=== PATIENT | male | born 1950 | race Caucasian/White ===

== ENCOUNTER 2018-08-01 08:37 | Outpatient (CLI) | payer MEDICARE, SELFPAY ==
--- NOTE | 2018-08-01 10:44 | DI.US_ITS ---
SYMPTOMS/DIAGNOSIS: RT CALF PAIN, M79.661, ? DVT RIGHT LOWER EXTREMITY ULTRASOUND: The deep veins of the right lower extremity show normal compression, augmentation and color flow. There is no evidence of a deep venous thrombus. No focal fluid collection is seen. The visualized portions of the greater saphenous vein are patent. IMPRESSION: No evidence of a right lower extremity deep venous thrombus.
== END 2018-08-01 08:57 ==
PROVIDERS: PCP Nurse Practitioner Family; Visit Provider Nurse Practitioner Family
DX: M79.661 Pain in right lower leg (principal)
CPT/HCPCS: 93971

== ENCOUNTER 2018-10-22 11:16 | Outpatient (CLI) | payer MEDICARE, SELFPAY ==
[2018-10-22 12:26] LABS: CREATININE 3.39 mg/dL (0.70-1.30); Calcium 8.4 mg/dL (8.5-10.1); Chloride 92 mmol/L (98-107); Estimated GFR 18.16 (mL/min/1.73m2); Glucose 188 mg/dL (70-100); Potassium 3.7 mmol/L (3.5-5.1); Sodium 130 mmol/L (136-145)
[2018-10-22 13:34] LABS: BUN 80 mg/dL (7-18)
== END 2018-10-22 11:36 ==
PROVIDERS: PCP Nurse Practitioner Family; Visit Provider Student in an Organized Health Care Education/Training Program
DX: R79.89 Other specified abnormal findings of blood chemistry (principal)
CPT/HCPCS: 36415; 80048

== ENCOUNTER 2018-10-22 12:47 | Inpatient (IN) | payer MEDICARE, SELFPAY ==
[2018-10-22 12:54] VITALS: BP 94/52; PULSE 95; RESP 20; TEMP 36.6; O2SAT 97
--- NOTE | 2018-10-22 13:04 | DI.CT_ITS ---
SYMPTOMS/DIAGNOSIS: LEFT LOWER QUADRANT ABDOMINAL PAIN WITH DIARRHEA X 1 WEEK, H/O DIVERTICULITIS, RESECTION IN 2011 CT OF THE ABDOMEN AND PELVIS: Comparison is made with May,. A noncontrast exam was performed. There is wall thickening and mild stranding seen around the cecum and ascending colon, as well as mild wall thickening of the transverse colon. There is also wall thickening and mild stranding in the surrounding fat involving the distal descending and rectosigmoid colon. There are scattered diverticula, but no focal evidence of diverticulitis. There are two areas of anastomosis in the sigmoid region. There is no evidence of obstruction. There is very little fecal material. There is no small bowel dilatation. There is no free air or free fluid. The lung bases are clear. The patient is status post cholecystectomy. There is mild liver enlargement, as well as fatty infiltration. The spleen is normal in size. The pancreas, adrenals and kidneys are unremarkable. The prostate is mildly enlarged. There is mild bladder wall thickening. The appendix appears normal. There are fatty-containing inguinal hernias, right greater than left. Degenerative changes are seen in the spine, greatest at L5-S1. IMPRESSION: Mild diffuse wall thickening and stranding surrounding the fat indicate colitis. There are diverticula but no evidence of focal diverticulitis.
--- NOTE | 2018-10-22 13:13 | ED.GENADUL_ITS ---
Discharge Plan Disposition Patient Disposition: [facility] INPATIENT Condition: Stable Discharge Details Chief Complaint: Abd Prob Clinical Impression: Colitis, Acute kidney injury, Acute dehydration Primary Care Provider: Mikki Mercado ED Provider: Dontrell Kiser Home Meds and New Rx's Prescriptions: No Action aspirin 325 MG tablet 1 tab PO PRN PRNRF: 0 oxycodone 5 MG tablet 5 - 10 mg PO Q4H PRN PRNQty: 20 RF: 0 Medical Decision Making This is a very pleasant 60-year-old male who was sent by his PCP for an elevated creatinine. He has had diarrhea for the last week, with notable amounts of every 20 minutes. He denies any black or tarry stools. He does have very mild left lower quadrant abdominal pain. When he initially went to see his primary care provider yesterday his creatinine was notably elevated. He was stopped on his lisinopril and metformin, and he was rechecked today and his creatinine was still high at 3.6. He has received 1 dose of Augmentin as prescribed by his PCP out of concern for diverticulitis. Physical exam demonstrates mild dehydration, blood pressure is slightly on the lower side, no evidence of severe tachycardia. The patient does look stable though. Abdomen demonstrates mild tenderness. We will get a CT scan to make sure there is no evidence of significant abscess, or other renal pathology causing his elevated creatinine, however I feel the most likely cause of his symptoms this is notable diarrhea and a prerenal component. We will rehydrate, secondary to the patient is notably elevated creatinine I do feel that he would benefit from inpatient admission 3:16 PM The patient's laboratory workup reflects the work done outpatient, renal function is still a elevated, I feel that is most likely secondary to notable dehydration during his diarrhea episodes. CT scan results have returned and per Dr. Mathew the only acute processes mild colitis and inflammation throughout the descending and sigmoid colon, with no evidence of active diverticulitis. I have started Cipro and Flagyl. The remainder of the patient's laboratory workup is otherwise relatively benign aside from mild electrolyte abnormalities. I discussed the case with Dr. Churchill, she agrees with the assessment and plan. I have extensively reviewed the treatment plan with the patient. I have addressed all patient concerns at this time. I have also discussed the plan with the admitting physician and they agree with the current assessment and plan and have agreed to assume responsibility for the patient. All parties demonstrate verbal understanding and agreement with our assessment and plan at this time. HPI General Date/Time Provider Initiated Documentation: 10/22/18 12:51 . HPI Narrative: This is a pleasant 60-year-old male with a past medical history of hypertension, diabetes, who presents today for evaluation of an elevated creatinine. Patient states that for the last week he has been having diarrhea, for the first 4 days he had a bowel movement every 20 minutes, it was green in color. It is continued for the last week but slowly started to improve the last day. He was started on Augmentin by his PCP just yesterday and has had one dose. He states that today's stool is slightly more formed, it is dark brown, but not black. When he did went into see his family doctor they did draw labs, he was complaining of some left lower quadrant tenderness. His creatinine on exam was 3.6, which is notably elevated for him. His lisinopril and metformin were held, and she was rechecked today and his labs were continued to be elevated. He was sent into the ER for further evaluation. Aside for the mild left lower quadrant pain he denies any other pain, tenderness, vomiting, chest pain, shortness of breath, fever or chills. He denies any recent foreign t ravel, antibiotic use aside for the Augmentin, or other sick contacts with similar symptoms. He denies any other complaints or modifying factors. He denies any recent abdominal surgeries. Related Data Home Medications Medication Instructions Recorded Confirmed aspirin 1 tab PO PRN PRN 06/02/14 06/03/14 oxycodone 5 - 10 mg PO Q4H PRN PRN #20 tab 06/04/14 Previous Rx's Medication Instructions Recorded oxycodone 5 - 10 mg PO Q4H PRN PRN #20 tab 06/04/14 Allergies Allergy/AdvReac Type Severity Reaction Status Date / Time No Known Allergies Allergy Unverified 10/22/18 12:58 General Stated Complaint: Abd Prob MITESH: 3 Review of Systems Review of Systems All systems reviewed & are unremarkable except as noted in HPI and below PFSH Surgical History Cholecystectomy (06/03/14) Social History Smoking/Tobacco Use Status: Current every day Alcohol Intake: current Drug use: Never Substance use type: does not use Do you feel safe at home: Yes Do you feel safe in your relationship?: Yes Exam Narrative Exam Narrative: 1.Const: Well-nourished, Well-developed, appearing stated age 2.Eyes: PERRL, no conjunctival injection, and symmetrical lids. 3.ENT: Atraumatic external nose and ears. Slightly dry MM. Neck: Symmetric, trachea midline, No thyromegaly. 4.CVS: +S1/S2, No murmurs or gallops. Peripheral pulses 2+ and equal in all extremities. Brisk capillary refill in all extremities. 5.RESP: Unlabored respiratory effort. Clear to auscultation bilaterally. No wheezes rales or rhonchi 6.GI: Soft,Nondistended, No hepatosplenomegaly. No guarding or rebound. Patient does demonstrate mild left lower quadrant abdominal tenderness on palpation. No guarding or rebound. No evidence of an acute surgical abdomen. 7.MSK: Normocephalic/Atraumatic, Extremities w/o deformity or ttp No cyanosis or clubbing, Normal movement of all extremities 8.Skin: Warm, Dry. No rashes or lesions. 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 Sensation grossly intact, no focal neurologic deficits. 10.Psych: (AAO) x3. Appropriate mood and affect Course Vital Signs Temperature 36.6 C 10/22/18 12:54 Pulse 95 H 10/22/18 12:54 Respiratory Rate 20 10/22/18 12:54 Blood Pressure 94/52 L 10/22/18 12:54 Pulse Oximetry 97 10/22/18 12:54 Temperature 36.6 C 10/22/18 12:54 Temperature Source Temporal Artery Scan 10/22/18 12:54 Pulse 95 H 10/22/18 12:54 Respiratory Rate 20 10/22/18 12:54 Respiratory Effort Non-Labored 10/22/18 12:54 Blood Pressure 94/52 L 10/22/18 12:54 Pulse Oximetry 97 10/22/18 12:54 Oxygen Delivery Method Room Air 10/22/18 12:54 Oxygen Flow Rate 0 10/22/18 12:54
[2018-10-22 13:38] LABS: Bilirubin Negative (Negative); Blood Negative (Negative); Clarity Clear; Glucose Negative (Negative); Ketones Negative (Negative); Leukocyte Esterase Negative (Negative); Nitrite Negative (Negative); Specific Gravity 1.025 (1.005-1.025); Urobilinogen 0.2 EU/dL (Up TO 0.2); pH 5.5 (5-8)
[2018-10-22 13:48] LABS: Epithelial Cells Few HPF (Negative); RBC 0-2 (0-2); WBC 0-2 HPF (0-5)
[2018-10-22 13:49] LABS: Bacteria Moderate HPF (Negative); C & S Indicated? Yes; Casts 3-5 Hyaline LPF (Negative); Crystals Negative HPF (Negative); Mucus Moderate (Negative)
[2018-10-22] MEDS: Normal Saline 1,000 ML 1000 ML IV ×2 (13:55→16:09)
[2018-10-22 14:14] LABS: HCT 43.3 % (40.0-50.0); HGB 15.4 g/dL (13.5-17.5); Mean Corp. HGB Concentration 35.6 g/dL (32.0-36.0); Mean Corpuscular Hemoglobin 29.3 pg (27.0-33.0); Mean Corpuscular Volume 82.5 fL (80-95); Mean Platelet Volume 10.5 fL (8.0-11.0); Platelet Count 276 x1000/uL (130-400); RBC 5.25 m/cumm (4.50-6.00); RBC Distribution Width 13.8 % (11.8-14.1); White Blood Cell Count 10.27 k/cumm (4.4-10.8)
[2018-10-22 14:19] LABS: ALT 53 U/L (12-78); AST 31 U/L (15-37); Albumin 2.9 g/dL (3.4-5.0); Alkaline Phosphatase 112 U/L (46-116); BUN 79 mg/dL (7-18); Bilirubin, Total 0.4 mg/dL (0.2-1.0); CREATININE 3.38 mg/dL (0.70-1.30); Calcium 8.2 mg/dL (8.5-10.1); Chloride 90 mmol/L (98-107); Estimated GFR 18.22 (mL/min/1.73m2); Glucose 163 mg/dL (70-100); Potassium 3.3 mmol/L (3.5-5.1); Sodium 129 mmol/L (136-145)
[2018-10-22 14:27] LABS: Absolute Eosinophil Count 0.41 k/cumm (0.0-0.7); Absolute Lymphocyte Count 1.54 k/cumm (1.2-3.4); Absolute Monocyte Count 1.13 k/cumm (0.11-0.7); Absolute Neutrophil Count 7.19 k/cumm (1.2-6.7); Atypical Lymphocytes % 3; Diff Comment Manual Differential; RBC Morphology Normal
[2018-10-22 14:40] LABS: Magnesium 2.4 mg/dL (1.8-2.4)
[2018-10-22] MEDS: CIPROFLOXACIN 400 MG/200 ML BAG 200 MG IVPB (15:20)
[2018-10-22] MEDS: POTASSIUM CHLORIDE 20 MEQ/100 ML BAG 50 MEQ IVPB (15:20)
[2018-10-22 15:45] VITALS: BP 149/119; PULSE 84; RESP 16; TEMP 36.5; O2SAT 95
[2018-10-22 16:28] VITALS: BP 103/65; PULSE 88; RESP 18; TEMP 36.5; O2SAT 97
[2018-10-22] MEDS: metroNIDAZOLE 500 MG/100 ML BAG 100 MG IVPB ×2 (17:20→22:36)
--- NOTE | 2018-10-22 17:59 | W.PM.HP.N ---
Date of service: 10/22/18 Time of Service: 17:59 Assessment and Plan (1) LIZ (acute kidney injury): Current visit: Yes Status: Acute Likely due to dehydration - so will treat with IVF, but will also ensure the patient does not have urinary retention with bladder scans. Will monitor I/O's and daily weights. Hold nephrotoxins (metformin, lisinopril). Hold statin until results of CPK are known. (2) Colitis: Current visit: Yes Status: Acute Agree that this is likely infectious. Await stool studies. Treat empirically with cipro/flagyl and probiotics. (3) Hyperlipidemia: Current visit: Yes Status: Acute As above - hold statin until CPK results are known. (4) Non-insulin dependent type 2 diabetes mellitus: Current visit: Yes Status: Acute Cover with SSI. Hold metformin. (5) Tobacco abuse: Current visit: Yes Status: Chronic Advised to quit. Provide nicotine patches (6) Hypokalemia: Current visit: Yes Status: Acute Replete, monitor (7) Hyponatremia: Current visit: Yes Status: Acute Hydrate with NS and monitor (8) Discharge planning issues: Current visit: Yes Status: Acute Full code. (9) DVT prophylaxis: Current visit: Yes Status: Acute Heparin SC/TEDs/SCD's History of Present Illness Chief Complaint: Sent in by doctor Narrative: Mr Juarez is a 68 year old male with PMHx of diverticulosis/diverticulitis, s/p partial colectomy as well as NIDDM2, hyperlipidemia and tobacco abuse, who states for 9 days he has been having LLQ pain and watery diarrhea. He thought he had food poisoning - and he still thinks he may have because he recently ingested avocados, which are now being recalled - so he was delaying seeing his doctor, but did finally go see someone in his PCP's office, whose name he cannot recall, who treated him for diverticulitis with augmentin, but also ordered blood work, which revealed a creatinine of 3.69. Per patient, he received the phone call at home last night at 10 pm, telling him to stop taking metformin and lisinopril. He repeated his blood work this morning, and it still showed a Cr of 3.39, so he was told by his doctor to come in. The diarrhea the patient describes was bright (but dark) green and watery. He states he had bowel movements every 30 minutes. The LLQ pain was severe. He states there was mild nausea/vomiting. The stools finally started to slow down yesterday, when he only had one stool. Review of Systems Review of Systems 12 systems reviewed. Pertinent positives and negatives are as per HPI. Additionally, reports sore throat PFSH Medical History Diverticulosis (Chronic) Hyperlipidemia (Chronic) Non-insulin dependent type 2 diabetes mellitus (Chronic) Surgical History S/P foot surgery, right (Resolved) S/P partial colectomy (Resolved) Cholecystectomy (06/03/14) Family History Maternal Grandfather Heart disease Father Esophageal cancer Social History Smoking/Tobacco Use Status: Current every day Alcohol Intake: current Drug use: Never Substance use type: does not use Do you feel safe at home: Yes Do you feel safe in your relationship?: Yes Meds Home Medications Medication Instructions Recorded Confirmed Type aspirin 1 tab PO PRN PRN 06/02/14 10/22/18 History amoxicillin-pot clavulanate 1 tab PO TID 10/22/18 10/22/18 History [Augmentin] lisinopril 5 mg PO DAILY 10/22/18 10/22/18 History metformin 500 mg PO BID 10/22/18 10/22/18 History Allergies Allergy/AdvReac Type Severity Reaction Status Date / Time No Known Allergies Allergy Unverified 10/22/18 12:58 Exam Narrative Exam Narrative: General: Very pleasant, talkative middle-aged male, mildly anxious, no acute distress, sitting at the edge of the bed Neurological: A&Ox3, No focal deficits Psychiatric: Appropriate speech pattern and content; mildly anxious Skin: Hyperpigmentation of RLE - ?chronic venous stasis HEENT: Atraumatic, normocephalic, EOMI, dry MM, no submandibular or cervical lymphadenopathy, no goiter or JVD Cardiovascular: RRR, no m/r/g Lungs: quite rhonchi B Gastrointestinal: abdomen is soft, nontender, nondistended Extremities: 2+ pedal pulses B, no edema/c/c; RLE with ?venous stasis dermatitis Results Imaging Additional studies: CT abdomen/pelvis: Mild diffuse wall thickening and stranding surrounding the fat indicate colitis. There are diverticula but no evidence of focal diverticulitis. Labs : 10/22/18 13:55 10/22/18 13:55 Laboratory Results - last 24 hr 10/22/18 10/22/18 10/22/18 13:30 13:55 13:55 WBC 10.27 RBC 5.25 Hgb 15.4 Hct 43.3 MCV 82.5 MCH 29.3 MCHC 35.6 RDW 13.8 Plt Count 276 MPV 10.5 Immature Gran % 0.0 Neutrophils % 70.0 Lymphocytes % 12.0 Atypical Lymphs % 3 Monocytes % 11.0 Eosinophils % 4.0 Basophils % 0.0 Absolute Neutrophils 7.19 H Absolute Lymphocytes 1.54 Absolute Monocytes 1.13 H Absolute Eosinophils 0.41 Absolute Basophils 0.00 Differential Comment Manual differential RBC Morphology Normal Sodium 129 L Potassium 3.3 L Chloride 90 L Carbon Dioxide 26.0 Anion Gap 13.0 H BUN 79 H Creatinine 3.38 H Estimated GFR/1.73 m2 18.22 Glucose 163 H Calcium 8.2 L Magnesium Total Bilirubin 0.4 AST 31 ALT 53 Alkaline Phosphatase 112 Total Protein 7.0 Albumin 2.9 L Urine Color Yellow Urine Clarity Clear Urine pH 5.5 Ur Specific Browning 1.025 Urine Protein Trace H Urine Ketones Negative Urine Blood Negative Urine Nitrite Negative Urine Bilirubin Negative Urine Urobilinogen 0.2 Ur Leukocyte Esterase Negative Urine RBC 0-2 Urine WBC 0-2 Ur Epithelial Cells Few Urine Crystals Negative Urine Bacteria Moderate Urine Casts 3-5 hyaline Urine Mucus Moderate Ur Culture Indicated? Yes Urine Glucose Negative 10/22/18 13:55 WBC RBC Hgb Hct MCV MCH MCHC RDW Plt Count MPV Immature Gran % Neutrophils % Lymphocytes % Atypical Lymphs % Monocytes % Eosinophils % Basophils % Absolute Neutrophils Absolute Lymphocytes Absolute Monocytes Absolute Eosinophils Absolute Basophils Differential Comment RBC Morphology Sodium Potassium Chloride Carbon Dioxide Anion Gap BUN Creatinine Estimated GFR/1.73 m2 Glucose Calcium Magnesium 2.4 Total Bilirubin AST ALT Alkaline Phosphatase Total Protein Albumin Urine Color Urine Clarity Urine pH Ur Specific Browning Urine Protein Urine Ketones Urine Blood Urine Nitrite Urine Bilirubin Urine Urobilinogen Ur Leukocyte Esterase Urine RBC Urine WBC Ur Epithelial Cells Urine Crystals Urine Bacteria Urine Casts Urine Mucus Ur Culture Indicated? Urine Glucose Last Vital Signs Temp 36.5 C 10/22/18 16:28 Pulse 88 10/22/18 16:28 Resp 18 10/22/18 16:28 BP 103/65 10/22/18 16:28 Pulse Ox 97 10/22/18 16:28
[2018-10-22] MEDS: Normal Saline 1,000 ML 150 ML IV ×2 (19:11→22:36)
[2018-10-22 19:48] LABS: Creatine Kinase 36 U/L (39-308)
[2018-10-22] MEDS: Lactobacillus Acidophilus CAP 1 CAP PO (19:57)
[2018-10-22] MEDS: Heparin 5,000 UNITS/ML VIAL 5000 UNITS SC (19:57)
[2018-10-22 20:38] VITALS: PULSE 77; RESP 18; TEMP 36.7; O2SAT 96
[2018-10-23] VITALS (8 sets, daily range): BP systolic 102–125; BP diastolic 58–87; PULSE 58–76; RESP 16–20; TEMP 36.1–37.3; O2SAT 93–99
[2018-10-23] MEDS: Heparin 5,000 UNITS/ML VIAL 5000 UNITS SC ×3 (03:30→21:18)
[2018-10-23] MEDS: metroNIDAZOLE 500 MG/100 ML BAG 100 MG IVPB ×4 (03:31→22:50)
[2018-10-23] MEDS: Acetaminophen 325 MG TAB PO ×2 (03:44→17:34)
[2018-10-23] MEDS: Normal Saline 1,000 ML 150 ML IV ×3 (04:27→22:50)
[2018-10-23 07:19] LABS: Abs Immature Grans 0.15 k/cumm (0.0-0.09); Absolute Basophil Count 0.03 k/cumm (0.0-0.2); Absolute Eosinophil Count 0.37 k/cumm (0.0-0.7); Absolute Lymphocyte Count 1.72 k/cumm (1.2-3.4); Absolute Monocyte Count 1.19 k/cumm (0.11-0.7); Absolute Neutrophil Count 5.11 k/cumm (1.2-6.7); Basophils % 0.4; Eosinophils % 4.3; HCT 40.3 % (40.0-50.0); HGB 13.8 g/dL (13.5-17.5); Immature Grans % 1.8; Lymphocytes % 20.1; Mean Corp. HGB Concentration 34.2 g/dL (32.0-36.0); Mean Corpuscular Hemoglobin 29.1 pg (27.0-33.0); Mean Corpuscular Volume 84.8 fL (80-95); Mean Platelet Volume 10.3 fL (8.0-11.0); Monocytes % 13.9; Neutrophils % 59.5; Platelet Count 257 x1000/uL (130-400); RBC 4.75 m/cumm (4.50-6.00); RBC Distribution Width 13.9 % (11.8-14.1); White Blood Cell Count 8.57 k/cumm (4.4-10.8)
[2018-10-23 07:48] LABS: ALT 45 U/L (12-78); AST 25 U/L (15-37); Albumin 2.4 g/dL (3.4-5.0); Alkaline Phosphatase 109 U/L (46-116); BUN 59 mg/dL (7-18); Bilirubin, Total 0.3 mg/dL (0.2-1.0); C-Reactive Protein 3.86 mg/dL (0.0-0.3); CREATININE 2.26 mg/dL (0.70-1.30); Calcium 7.9 mg/dL (8.5-10.1); Chloride 102 mmol/L (98-107); Glucose 154 mg/dL (70-100); Magnesium 2.1 mg/dL (1.8-2.4); Potassium 3.5 mmol/L (3.5-5.1); Sodium 138 mmol/L (136-145); Total Protein 6.1 g/dL (6.4-8.2)
[2018-10-23] MEDS: Insulin Aspart 300 UNITS/3 ML PEN SC ×3 (08:06→17:20)
[2018-10-23] MEDS: Lactobacillus Acidophilus CAP 1 CAP PO ×3 (08:06→21:18)
[2018-10-23 08:17] LABS: ESR 31 MM/HR (1-20)
--- NOTE | 2018-10-23 12:58 | PDOC.CMIN ---
- If Service Date Differs Date of service: 10/23/18 Time of Service: 12:58 Care Management Initial Assess REASON FOR HOSPITALIZATION:: LIZ, Colitis PAST MEDICAL HISTORY/PAST SURGICAL HISTORY:: Diverticulosis (Chronic). Hyperlipidemia (Chronic). Non-insulin dependent type 2 diabetes mellitus (Chronic). S/P foot surgery, right (Resolved). S/P partial colectomy (Resolved). Cholecystectomy (06/03/14) PREVIOUS FUNCTIONAL STATUS/SOCIAL/FAMILY SUPPORTS:: Román resides alone in [facility]. He is retired and reports that he used to work for [employer]. Román has a daughter whom does not reside locally, though is supportive. He is independent at baseline, and manages ADL's CURRENT FUNCTIONAL STATUS:: Currently Román is sitting up on the side of his bed, pleasant and receptive to discussion. ADVANCE DIRECTIVES:: None on file Has patient been provided with information about the portal?: Yes Did the patient sign up for the portal?: No CODE STATUS:: Full Code INSURANCE COVERAGE / FINANCIAL ISSUES:: [facility], [facility] CURRENT HOME/COMMUNITY SERVICES/EQUIPMENT:: Currently Román has no services in the community. PRIMARY CARE PHYSICIAN:: Mikki Mercado POTENTIAL DISCHARGE NEEDS:: F/U appointment with PCP PATIENT/FAMILY EDUCATION NEEDS:: Review DC instructions, any limitations, and ongoing DC planning discussion. Discuss 'Ask Me Three' ANTICIPATED BARRIERS TO DISCHARGE:: None identified at this time TRANSPORTATION:: Via private vehicle PLAN:: Román will return home with no anticipated services. He will F/U with PCP and plan of care as prescribed. He will transport via private vehicle.
--- NOTE | 2018-10-23 13:01 | INITIAL_ITS ---
- If Service Date Differs Date of service: 10/23/18 Time of Service: 12:58 Care Management Initial Assess REASON FOR HOSPITALIZATION:: LIZ, Colitis PAST MEDICAL HISTORY/PAST SURGICAL HISTORY:: Diverticulosis (Chronic). Hyperlipidemia (Chronic). Non-insulin dependent type 2 diabetes mellitus (Chronic). S/P foot surgery, right (Resolved). S/P partial colectomy (Resolved). Cholecystectomy (06/03/14) PREVIOUS FUNCTIONAL STATUS/SOCIAL/FAMILY SUPPORTS:: Román resides alone in [facility]. He is retired and reports that he used to work for [employer]. Román has a daughter whom does not reside locally, though is supportive. He is independent at baseline, and manages ADL's CURRENT FUNCTIONAL STATUS:: Currently Román is sitting up on the side of his bed, pleasant and receptive to discussion. ADVANCE DIRECTIVES:: None on file Has patient been provided with information about the portal?: Yes Did the patient sign up for the portal?: No CODE STATUS:: Full Code INSURANCE COVERAGE / FINANCIAL ISSUES:: [facility], [facility] CURRENT HOME/COMMUNITY SERVICES/EQUIPMENT:: Currently Román has no services in the community. PRIMARY CARE PHYSICIAN:: Mikki Mercado POTENTIAL DISCHARGE NEEDS:: F/U appointment with PCP PATIENT/FAMILY EDUCATION NEEDS:: Review DC instructions, any limitations, and ongoing DC planning discussion. Discuss 'Ask Me Three' ANTICIPATED BARRIERS TO DISCHARGE:: None identified at this time TRANSPORTATION:: Via private vehicle PLAN:: Román will return home with no anticipated services. He will F/U with PCP and plan of care as prescribed. He will transport via private vehicle.
[2018-10-23] MEDS: CIPROFLOXACIN 200 MG/100 ML BAG 100 MG IVPB (14:11)
--- NOTE | 2018-10-23 19:59 | W.PM.PROGNOT ---
Date of Service Date of service: 10/23/18 Time of Service: 16:00 Assessment and Plan (1) LIZ (acute kidney injury): Current visit: Yes Status: Acute Likely prerenal. Continue IVF. Ok to resume statin - CPK ok. (2) Colitis: Current visit: Yes Status: Acute Likely infectious. Improving on cipro/flagyl - continue Continue probiotics. (3) Hyperlipidemia: Current visit: Yes Status: Acute Resume statin (4) Non-insulin dependent type 2 diabetes mellitus: Current visit: Yes Status: Acute Cover with SSI. Hold metformin. (5) Tobacco abuse: Current visit: Yes Status: Chronic Advised to quit. Provide nicotine patches (6) Hypokalemia: Current visit: Yes Status: Acute Repleted, monitor (7) Hyponatremia: Current visit: Yes Status: Acute Improved. Continue NS. (8) Discharge planning issues: Current visit: Yes Status: Acute Full code. (9) DVT prophylaxis: Current visit: Yes Status: Acute Heparin SC/TEDs/SCD's Subjective Interval history since last seen: The patient states that his diarrhea is now gooey. He denies dizziness, chest pain, shortness of breath, nausea. Continues to report LLQ pain. Inquiring when he would be able to go home. Exam Narrative Exam Narrative: General: A&Ox 3, sitting at the edge of the bed HEENT: EOMI, MMM Cardiovascular: RRR, no m/r/g Lungs: quite rhonchi B Gastrointestinal: abdomen is soft, mildly tender in LLQ Extremities: 2+ pedal pulses B, no edema/c/c; RLE with ?venous stasis dermatitis Objective Objective Clinical Data: Abnormal lab results 10/22/18 10/23/18 10/23/18 Range/Units 13:55 06:25 06:25 Absolute Monocytes 1.19 H (0.11-0.7) k/cumm ESR 31 H (1-20) MM/HR BUN 59 H D (7-18) mg/dL Creatinine 2.26 H D (0.70-1.30) mg/dL Glucose 154 H (70-100) mg/dL Calcium 7.9 L (8.5-10.1) mg/dL Creatine Kinase 36 L (39-308) U/L C-Reactive Protein 3.86 H (0.0-0.3) mg/dL Total Protein 6.1 L (6.4-8.2) g/dL Albumin 2.4 L (3.4-5.0) g/dL Vital Signs Temperature 36.2 C L 10/23/18 11:35 Temperature Source Tympanic 10/23/18 11:35 Pulse 58 L 10/23/18 11:35 Pulse Rhythm Regular 10/23/18 17:28 Pulse 70 10/23/18 09:36 Respiratory Rate 18 10/23/18 11:35 Respiratory Effort Non-Labored 10/23/18 17:28 Respiratory Depth Normal 10/23/18 17:28 Respiratory Pattern Normal 10/23/18 17:28 Blood Pressure 122/73 10/23/18 11:35 Pulse Oximetry 98 10/23/18 11:35 Oxygen Delivery Method Room Air 10/23/18 11:35 Oxygen Flow Rate 0 10/23/18 11:35 Pain Level 3 10/22/18 16:28 Intake & Output 10/22/18 10/23/18 10/23/18 23:59 11:59 23:59 Intake Total 3162.5 / 3162.5 2337.5 / 3157.5 820 / 3157.5 Output Total 400 / 1000 600 / 1000 Balance 3162.5 / 3162.5 1937.5 / 2157.5 220 / 2157.5 Weight 108.862 kg 108.3 kg Intake: IV 2912.5 / 2912.5 1976.5 / 7.5 100 / 7.5 Oral 250 / 250 360 / 1080 720 / 1080 Output: Urine 400 / 1000 600 / 1000 Other: Urine Color Yellow Yellow Urine Appearance Clear Clear Clear Urine Odor None Stool Occult Blood Positive Stool Size Small Stool Characteristics Soft Brown Voiding Methods Toilet Urinal Laboratory Results WBC 8.57 k/cumm (4.4-10.8) 10/23/18 06:25 RBC 4.75 m/cumm (4.50-6.00) 10/23/18 06:25 Hgb 13.8 g/dL (13.5-17.5) 10/23/18 06:25 Hct 40.3 % (40.0-50.0) 10/23/18 06:25 MCV 84.8 fL (80-95) 10/23/18 06:25 MCH 29.1 pg (27.0-33.0) 10/23/18 06:25 MCHC 34.2 g/dL (32.0-36.0) 10/23/18 06:25 RDW 13.9 % (11.8-14.1) 10/23/18 06:25 Plt Count 257 x1000/uL (130-400) 10/23/18 06:25 MPV 10.3 fL (8.0-11.0) 10/23/18 06:25 Immature Gran % 1.8 10/23/18 06:25 Neutrophils % 59.5 10/23/18 06:25 Lymphocytes % 20.1 10/23/18 06:25 Atypical Lymphs % 3 10/22/18 13:55 Monocytes % 13.9 10/23/18 06:25 Eosinophils % 4.3 10/23/18 06:25 Basophils % 0.4 10/23/18 06:25 Absolute Neutrophils 5.11 k/cumm (1.2-6.7) 10/23/18 06:25 Absolute Lymphocytes 1.72 k/cumm (1.2-3.4) 10/23/18 06:25 Absolute Monocytes 1.19 k/cumm (0.11-0.7) H 10/23/18 06:25 Absolute Eosinophils 0.37 k/cumm (0.0-0.7) 10/23/18 06:25 Absolute Basophils 0.03 k/cumm (0.0-0.2) 10/23/18 06:25 Differential Comment Manual differential 10/22/18 13:55 RBC Morphology Normal 10/22/18 13:55 ESR 31 MM/HR (1-20) H 10/23/18 06:25 Sodium 138 mmol/L (136-145) 10/23/18 06:25 Potassium 3.5 mmol/L (3.5-5.1) 10/23/18 06:25 Chloride 102 mmol/L (98-107) 10/23/18 06:25 Carbon Dioxide 26.0 mmol/L (21.0-32.0) 10/23/18 06:25 Anion Gap 10.0 mmol/L (3-11) 10/23/18 06:25 BUN 59 mg/dL (7-18) H D 10/23/18 06:25 Creatinine 2.26 mg/dL (0.70-1.30) H D 10/23/18 06:25 Estimated GFR/1.73 m2 29.00 (mL/min/1.73m2) 10/23/18 06:25 Glucose 154 mg/dL (70-100) H 10/23/18 06:25 Calcium 7.9 mg/dL (8.5-10.1) L 10/23/18 06:25 Magnesium 2.1 mg/dL (1.8-2.4) 10/23/18 06:25 Total Bilirubin 0.3 mg/dL (0.2-1.0) 10/23/18 06:25 Conjugated Bilirubin 0.10 mg/dL (0.00-0.20) 10/23/18 06:25 AST 25 U/L (15-37) 10/23/18 06:25 ALT 45 U/L (12-78) 10/23/18 06:25 Alkaline Phosphatase 109 U/L (46-116) 10/23/18 06:25 Creatine Kinase 36 U/L (39-308) L 10/22/18 13:55 C-Reactive Protein 3.86 mg/dL (0.0-0.3) H 10/23/18 06:25 Total Protein 6.1 g/dL (6.4-8.2) L 10/23/18 06:25 Albumin 2.4 g/dL (3.4-5.0) L 10/23/18 06:25 TSH 0.80 uIU/mL (0.358-3.74) 10/23/18 06:25 Urine Color Yellow (Yellow) 10/22/18 13:30 Urine Clarity Clear 10/22/18 13:30 Urine pH 5.5 (5-8) 10/22/18 13:30 Ur Specific [place] 1.025 (1.005-1.025) 10/22/18 13:30 Urine Protein Trace mg/dL (Negative) H 10/22/18 13:30 Urine Ketones Negative mg/dL (Negative) 10/22/18 13:30 Urine Blood Negative (Negative) 10/22/18 13:30 Urine Nitrite Negative (Negative) 10/22/18 13:30 Urine Bilirubin Negative (Negative) 10/22/18 13:30 Urine Urobilinogen 0.2 EU/dL (Up TO 0.2) 10/22/18 13:30 Ur Leukocyte Esterase Negative (Negative) 10/22/18 13:30 Urine RBC 0-2 (0-2) 10/22/18 13:30 Urine WBC 0-2 HPF (0-5) 10/22/18 13:30 Ur Epithelial Cells Few HPF (Negative) 10/22/18 13:30 Urine Crystals Negative HPF (Negative) 10/22/18 13:30 Urine Bacteria Moderate HPF (Negative) 10/22/18 13:30 Urine Casts 3-5 hyaline LPF (Negative) 10/22/18 13:30 Urine Mucus Moderate (Negative) 10/22/18 13:30 Ur Culture Indicated? Yes 10/22/18 13:30 Urine Glucose Negative mg/dL (Negative) 10/22/18 13:30
[2018-10-23] MEDS: Atorvastatin 20 MG TAB PO (22:50)
[2018-10-24 03:35] VITALS: BP 111/70; PULSE 72; RESP 18; TEMP 36.7; O2SAT 94
[2018-10-24] MEDS: metroNIDAZOLE 500 MG/100 ML BAG 100 MG IVPB ×4 (03:59→22:05)
[2018-10-24] MEDS: Heparin 5,000 UNITS/ML VIAL 5000 UNITS SC ×3 (03:59→20:00)
[2018-10-24] MEDS: Normal Saline 1,000 ML 150 ML IV ×2 (06:28→14:05)
[2018-10-24 07:14] LABS: Anion Gap 8.3 mmol/L (3-11); BUN 37 mg/dL (7-18); CO2 25.7 mmol/L (21.0-32.0); CREATININE 1.55 mg/dL (0.70-1.30); Calcium 8.2 mg/dL (8.5-10.1); Chloride 104 mmol/L (98-107); Estimated GFR 44.81 (mL/min/1.73m2); Glucose 150 mg/dL (70-100); Magnesium 1.8 mg/dL (1.8-2.4); Sodium 138 mmol/L (136-145)
[2018-10-24 07:40] VITALS: BP 115/72; PULSE 75; RESP 14; TEMP 36.5; O2SAT 95
[2018-10-24] MEDS: Lactobacillus Acidophilus CAP 1 CAP PO ×3 (08:07→20:00)
[2018-10-24 11:40] VITALS: BP 128/77; PULSE 67; RESP 16; TEMP 36.7; O2SAT 96
[2018-10-24] MEDS: Insulin Aspart 300 UNITS/3 ML PEN SC (12:03)
[2018-10-24] MEDS: CIPROFLOXACIN 200 MG/100 ML BAG 100 MG IVPB (14:04)
--- NOTE | 2018-10-24 14:04 | PDOC.CMPRO ---
- If Service Date Differs Date of service: 10/24/18 Time of Service: 14:04 Care Management Progress Note S/O: Román is sitting up in bed today. He continues to have multiple bowel movements. Román reports that he wants to return home, however wants to be sure that he is as ready as he can be first. He is pleasant throughout discussion and receptive to discussion around DC planning. A: 68 y/o male admitted 10/22/18 for Acute Kidney Injury P: Román will return home with no anticipated services once medically cleared. He will F/U with PCP and plan of care as prescribed.
[2018-10-24 14:45] VITALS: BP 144/68; PULSE 85; RESP 18; TEMP 36.5; O2SAT 98
--- NOTE | 2018-10-24 15:29 | W.PM.PROGNOT ---
Date of Service Date of service: 10/24/18 Time of Service: 15:29 Assessment and Plan (1) LIZ (acute kidney injury): Current visit: Yes Status: Acute Likely prerenal on the basis of dehydration related to diarrhea and continued metformin and lisinopril. Continue IV fluids. BMP in the morning. (2) Colitis: Current visit: Yes Status: Acute Likely infectious in origin. Improving. Continue probiotics and Cipro and Flagyl. Stool studies pending. (3) Hyperlipidemia: Current visit: Yes Status: Acute Continue statin therapy. (4) Tobacco abuse: Current visit: Yes Status: Chronic Encourage smoking cessation. Provide nicotine replacement. (5) Hypokalemia: Current visit: Yes Status: Acute Improved with supplementation. Continue to monitor. (6) Hyponatremia: Current visit: Yes Status: Acute Improved with IV fluids. Continue to monitor. (7) Non-insulin dependent type 2 diabetes mellitus: Current visit: Yes Status: Acute Blood sugar within acceptable range. Continue to hold metformin. Cover with sliding scale insulin. Continue carbohydrate counting diet. (8) DVT prophylaxis: Current visit: Yes Status: Acute Subcutaneous heparin. (9) Discharge planning issues: Current visit: Yes Status: Acute He is a full code. If he continues to improve, will likely be ready for discharge in the next 24-48 hours. This case was discussed with Dr. Churchill who is in agreement. Subjective Interval history since last seen: Mr. Juarez continues to report frequent stools, they are no longer watery, they are loose, he has had four so far today. His left lower quadrant pain has improved. He is eating and drinking and tolerating his diet without nausea, vomiting or increased pain. His renal function is improving, not yet at his baseline. He continues on IV fluids. Stool studies are pending. He denies dizziness, fever, chills, shortness of breath, coughing, wheezing, chest pain/pressure, palpitations, no edema. He reports feeling bored. Exam Narrative Exam Narrative: General: Pleasant and cooperative, A&Ox 3, sitting at the edge of the bed on his computer. HEENT: Normocephalic, atraumatic, pupils equal round, extraocular movements intact, mucous membranes moist. Cardiovascular: Heart has regular rate and rhythm, no murmur appreciated. Lungs: Respirations even and unlabored, lung sounds clear to auscultation throughout. Gastrointestinal: Normoactive bowel sounds, abdomen is soft, nondistended, nontender on palpation. Extremities: No clubbing, cyanosis or edema to bilateral lower extremities, pedal pulses palpable bilaterally. Objective Objective Clinical Data: Abnormal lab results 10/24/18 Range/Units 06:40 BUN 37 H D (7-18) mg/dL Creatinine 1.55 H D (0.70-1.30) mg/dL Glucose 150 H (70-100) mg/dL Calcium 8.2 L (8.5-10.1) mg/dL Vital Signs Temperature 36.5 C 10/24/18 14:45 Temperature Source Tympanic 10/24/18 14:45 Pulse 85 10/24/18 14:45 Pulse Rhythm Regular 10/24/18 07:50 Pulse 70 10/23/18 09:36 Respiratory Rate 18 10/24/18 14:45 Respiratory Effort Non-Labored 10/24/18 07:50 Respiratory Depth Normal 10/24/18 07:50 Respiratory Pattern Normal 10/24/18 07:50 Blood Pressure 144/68 H 10/24/18 14:45 Pulse Oximetry 98 10/24/18 14:45 Oxygen Delivery Method Room Air 10/24/18 14:45 Oxygen Flow Rate 0 10/24/18 14:45 Pain Level 3 10/22/18 16:28 Intake & Output 10/23/18 10/24/18 10/24/18 23:59 11:59 23:59 Intake Total 2120 / 4457.5 1662.5 / 3162.5 1500 / 3162.5 Output Total 2160 / 2560 3075 / 3875 800 / 3875 Balance -40 / 1897.5 -1412.5 / -712.5 700 / -712.5 Weight 109.3 kg Intake: IV 1400 / 3377.5 1052.5 / 2052.5 1000 / 2052.5 Oral 720 / 1080 610 / 1110 500 / 1110 Output: Urine 2160 / 2560 3075 / 3875 800 / 3875 Other: Urine Color Yellow Yellow Yellow Urine Appearance Clear Clear Clear Urine Odor None Stool Occult Blood Negative Negative Stool Size Moderate Large Stool Characteristics Soft Soft Brown Voiding Methods Urinal Toilet Urinal Laboratory Results WBC 8.57 k/cumm (4.4-10.8) 10/23/18 06:25 RBC 4.75 m/cumm (4.50-6.00) 10/23/18 06:25 Hgb 13.8 g/dL (13.5-17.5) 10/23/18 06:25 Hct 40.3 % (40.0-50.0) 10/23/18 06:25 MCV 84.8 fL (80-95) 10/23/18 06:25 MCH 29.1 pg (27.0-33.0) 10/23/18 06:25 MCHC 34.2 g/dL (32.0-36.0) 10/23/18 06:25 RDW 13.9 % (11.8-14.1) 10/23/18 06:25 Plt Count 257 x1000/uL (130-400) 10/23/18 06:25 MPV 10.3 fL (8.0-11.0) 10/23/18 06:25 Immature Gran % 1.8 10/23/18 06:25 Neutrophils % 59.5 10/23/18 06:25 Lymphocytes % 20.1 10/23/18 06:25 Atypical Lymphs % 3 10/22/18 13:55 Monocytes % 13.9 10/23/18 06:25 Eosinophils % 4.3 10/23/18 06:25 Basophils % 0.4 10/23/18 06:25 Absolute Neutrophils 5.11 k/cumm (1.2-6.7) 10/23/18 06:25 Absolute Lymphocytes 1.72 k/cumm (1.2-3.4) 10/23/18 06:25 Absolute Monocytes 1.19 k/cumm (0.11-0.7) H 10/23/18 06:25 Absolute Eosinophils 0.37 k/cumm (0.0-0.7) 10/23/18 06:25 Absolute Basophils 0.03 k/cumm (0.0-0.2) 10/23/18 06:25 Differential Comment Manual differential 10/22/18 13:55 RBC Morphology Normal 10/22/18 13:55 ESR 31 MM/HR (1-20) H 10/23/18 06:25 Sodium 138 mmol/L (136-145) 10/24/18 06:40 Potassium 4.0 mmol/L (3.5-5.1) 10/24/18 06:40 Chloride 104 mmol/L (98-107) 10/24/18 06:40 Carbon Dioxide 25.7 mmol/L (21.0-32.0) 10/24/18 06:40 Anion Gap 8.3 mmol/L (3-11) 10/24/18 06:40 BUN 37 mg/dL (7-18) H D 10/24/18 06:40 Creatinine 1.55 mg/dL (0.70-1.30) H D 10/24/18 06:40 Estimated GFR/1.73 m2 44.81 (mL/min/1.73m2) 10/24/18 06:40 Glucose 150 mg/dL (70-100) H 10/24/18 06:40 Calcium 8.2 mg/dL (8.5-10.1) L 10/24/18 06:40 Magnesium 1.8 mg/dL (1.8-2.4) 10/24/18 06:40 Total Bilirubin 0.3 mg/dL (0.2-1.0) 10/23/18 06:25 Conjugated Bilirubin 0.10 mg/dL (0.00-0.20) 10/23/18 06:25 AST 25 U/L (15-37) 10/23/18 06:25 ALT 45 U/L (12-78) 10/23/18 06:25 Alkaline Phosphatase 109 U/L (46-116) 10/23/18 06:25 Creatine Kinase 36 U/L (39-308) L 10/22/18 13:55 C-Reactive Protein 3.86 mg/dL (0.0-0.3) H 10/23/18 06:25 Total Protein 6.1 g/dL (6.4-8.2) L 10/23/18 06:25 Albumin 2.4 g/dL (3.4-5.0) L 10/23/18 06:25 TSH 0.80 uIU/mL (0.358-3.74) 10/23/18 06:25 Urine Color Yellow (Yellow) 10/22/18 13:30 Urine Clarity Clear 10/22/18 13:30 Urine pH 5.5 (5-8) 10/22/18 13:30 Ur Specific [place] 1.025 (1.005-1.025) 10/22/18 13:30 Urine Protein Trace mg/dL (Negative) H 10/22/18 13:30 Urine Ketones Negative mg/dL (Negative) 10/22/18 13:30 Urine Blood Negative (Negative) 10/22/18 13:30 Urine Nitrite Negative (Negative) 10/22/18 13:30 Urine Bilirubin Negative (Negative) 10/22/18 13:30 Urine Urobilinogen 0.2 EU/dL (Up TO 0.2) 10/22/18 13:30 Ur Leukocyte Esterase Negative (Negative) 10/22/18 13:30 Urine RBC 0-2 (0-2) 10/22/18 13:30 Urine WBC 0-2 HPF (0-5) 10/22/18 13:30 Ur Epithelial Cells Few HPF (Negative) 10/22/18 13:30 Urine Crystals Negative HPF (Negative) 10/22/18 13:30 Urine Bacteria Moderate HPF (Negative) 10/22/18 13:30 Urine Casts 3-5 hyaline LPF (Negative) 10/22/18 13:30 Urine Mucus Moderate (Negative) 10/22/18 13:30 Ur Culture Indicated? Yes 10/22/18 13:30 Urine Glucose Negative mg/dL (Negative) 10/22/18 13:30 Stool Source (see note) 10/22/18 16:25 Cryptosporidium/Giardia (see note) 10/22/18 16:25 Parasite Rprt Status (see note) 10/22/18 16:25
[2018-10-24] MEDS: Normal Saline Flush 10 ML SYR IVP (15:44)
--- NOTE | 2018-10-24 18:13 | DIABASSESS_ITS ---
DESCRIPTION: Appreciate diabetes consult for Román Juarez who is hospitalized with acute renal impairment. BMI 32 A1c 7 03/15/18. During this hospitalization Mr. Juarez has blood sugars fasting 137-161 and before other meals 142-182 taking sensitive insulin correction. He eats 50-60 grams carbohydrate here. Mr. Juarez manages his diabetes with Metformin 1000 twice daily. He states he monitors his blood sugars in the morning a few times a week at 125mg/dl. He knows to limit sugar in his coffee and to decrease bread. He attributes hyperglycemia to his stopping work which involved a lot of walking daily. He is no longer physically active. ASSESSMENT/INTERVENTION: No current A1c however he describes reasonable control with fasting blood sugars at home. He declines self management support at this time. Discussed progressive nature of diabetes and importance of early intervention to prevent progression. Discussed monitoring blood sugars at different times of the day to see if hyperglycemia occurs secondary to his food intake or stress factors. Encouraged him to request A1c at his next PCP appointment. PLAN: Monitor blood sugars and carbohydrate intake. He knows support is available to him if desired.
[2018-10-24 21:08] VITALS: BP 148/74; PULSE 67; RESP 19; TEMP 36.7; O2SAT 95
[2018-10-24] MEDS: Atorvastatin 20 MG TAB PO (22:06)
[2018-10-25 01:15] VITALS: BP 113/62; PULSE 68; RESP 16; TEMP 36.9; O2SAT 95
[2018-10-25] MEDS: metroNIDAZOLE 500 MG/100 ML BAG 100 MG IVPB ×2 (04:34→10:09)
[2018-10-25] MEDS: Heparin 5,000 UNITS/ML VIAL 5000 UNITS SC (04:34)
[2018-10-25 04:42] VITALS: BP 133/69; PULSE 65; RESP 18; TEMP 36.4; O2SAT 97
[2018-10-25 07:23] LABS: Anion Gap 8.9 mmol/L (3-11); BUN 23 mg/dL (7-18); CO2 25.1 mmol/L (21.0-32.0); CREATININE 1.25 mg/dL (0.70-1.30); Calcium 8.4 mg/dL (8.5-10.1); Chloride 107 mmol/L (98-107); Estimated GFR 57.44 (mL/min/1.73m2); Glucose 141 mg/dL (70-100); HGB 13.3 g/dL (13.5-17.5); Mean Corp. HGB Concentration 33.3 g/dL (32.0-36.0); Mean Corpuscular Hemoglobin 28.6 pg (27.0-33.0); Mean Platelet Volume 9.8 fL (8.0-11.0); Platelet Count 284 x1000/uL (130-400); Potassium 4.1 mmol/L (3.5-5.1); RBC 4.65 m/cumm (4.50-6.00); RBC Distribution Width 13.9 % (11.8-14.1); Sodium 141 mmol/L (136-145); White Blood Cell Count 10.19 k/cumm (4.4-10.8)
--- NOTE | 2018-10-25 07:58 | PHARADMIT ---
Admission Pharmacy Clinical Review ACUTE KIDNEY INJURY Code Status Full Code Current Weight Wgt- 111 kg Renally Cleared and Narrow Therapeutic Index Meds CrCl~ 62 mL/min Meds-OK QTc Value / Action Taken na BP Control, Fever BP- 133/69 Tmax-36.7C Electrolytes reviewed Na- 141 K+4.1 Mag-1.8 DVT Prophylaxis Heparin SC Opiate Usage / Scheduled Bowel Regimen Ordered No No Plt/SCr for Heparin / Enoxaparin Plts-284 SCr-1.25 (was 3.38) INR for Warfarin NA H/H stable, WBC/Bands H&H- 13.3/40.0 WBC- 10.19 Antibiotic appropriateness Cipro,Flagyl Cultures and Sensitivities C-diff-Neg Lactoferrin-Pos, Urine-No Growth/24hrs Surgical ABX d/c within 24 hr NA DM control / Insulin Dosing BG- 141 Aspart Heart Failure (Check EF%) (GABRIELA's, B-Block, Diuretics) none IV to PO Switch No Home Meds Reviewed Yes Home Meds Not Ordered Augmentin, ASA, Lipitor, Metformin, Lisinopril, Viagra Comments
[2018-10-25 08:34] VITALS: BP 127/84; PULSE 74; RESP 16; TEMP 36.5; O2SAT 96
[2018-10-25] MEDS: Lactobacillus Acidophilus CAP 1 CAP PO (10:10)
--- NOTE | 2018-10-25 11:19 | DSE_ITS ---
Date of service: 10/25/18 Time of Service: 11:07 DS: Diagnosis Discharge Diagnosis (1) LIZ (acute kidney injury): Status: Acute (2) Colitis: Status: Acute (3) Hyperlipidemia: Status: Acute (4) Tobacco abuse: Status: Chronic (5) Hypokalemia: Status: Acute (6) Hyponatremia: Status: Acute (7) Non-insulin dependent type 2 diabetes mellitus: Status: Acute Discharge Plan Disposition Patient Disposition: HOME Condition: Stable Discharge Details Reason For Visit: ACUTE KIDNEY INJURY Admit Date/Time: 10/24/18 16:45 Admit Provider: Rupal Churchill Attending Provider: Rupal Churchill Primary Care Provider: Mikki Mercado [facility] Course Hospital Course: Mr. Arenas is a very pleasant 68-year-old man with a past medical history significant for diverticulosis/diverticulitis, status post partial colectomy as well as non-insulin diabetes type II, hyperlipidemia and tobacco abuse who presented to the emergency department on 10/22/2018 with reports of several days of left lower quadrant pain with watery diarrhea. He was concerned that this might represent food poisoning. He eventually saw a provider in his primary care office who started him on Augmentin for diverticulitis and ordered blood work which revealed a creatinine of 3.69. He received a phone call from his PCP office to stop taking metformin and lisinopril, on the morning of his admission he had repeat lab work, his creatinine remained elevated at 3.39 and he was advised to present to the emergency department. He had an abdominal CT in the emergency department which revealed mild diffuse wall thickening and stranding surrounding the fat indicate colitis. There are diverticula but no evidence of focal diverticulitis. He was admitted to the MedSurg floor, he was empirically treated with Cipro and Flagyl with probiotics, stool cultures were obtained and are still pending. In regard to his acute kidney injury, this is likely related to dehydration related to diarrhea and continued metformin and lisinopril for which he received IV fluids. Nephrotoxic medications including metformin lisinopril were held. CPK was within normal limits, statin was restarted. His renal function improved daily until the day of discharge when his creatinine was within normal limits at 1.25, his baseline is around 1. He was no longer having watery stools, he continued to have soft stools. There was concern for urinary tract infection on urinalysis, however urine culture has yielded less than 10,000 colonies of gram-positive karina. He has no symptoms of urinary tract infection. Bladder scan revealed no postvoid residual. He is discharged home today in improved condition. He will continue Cipro and Flagyl for a 10-day course. He will continue to take probiotics. He is advised to contact his primary care providers office on Saturday to set up a follow-up within the next 1-2 weeks. Stool cultures pending at the time of discharge. He will have follow-up BMP in 5 days. Home Meds and New Rx's Prescriptions: New acidophilus-pectin, citrus 25 million cell -100 mg Tablet 1 cap PO TID Qty: 21 RF: 0 metronidazole 500 mg tablet 500 mg PO TID Qty: 21 RF: 0 ciprofloxacin HCl 500 mg tablet 500 mg PO BID Qty: 14 RF: 0 Continued atorvastatin 20 mg Tablet 20 mg PO HS RF: 0 sildenafil [Viagra] 50 mg Tablet 50 mg PO PRN PRNRF: 0 aspirin [Aspir-Low] 81 mg Tablet,Delayed Release (Dr/Ec) 81 mg PO DAILY RF: 0 metformin 1,000 mg Tablet 1,000 mg PO BID RF: 0 Discontinued lisinopril 5 mg Tablet 5 mg PO DAILY RF: 0 amoxicillin-pot clavulanate [Augmentin] 500-125 mg Tablet 1 tab PO TID RF: 0 Discharge Instructions Instructions: Dehydration (DC), Acute Kidney Injury (DC), Infectious Colitis (GEN) Additional Instructions: Continue taking Antibiotics (Cipro and flagyl) as prescribed until they are gone. Stay hydrated. Do not take Metfromin or Lisinopril until your PCP instructs you to start taking it again. You will need to have labs drawn in 5 days, the results will go to your PCP. Call your PCP office Saturday to have an appointment set up for the next 1-2 weeks. Continue smoking cessation. Take care! Stand Alone Forms: Nursing Discharge Form Referrals: Mikki Mercado [Primary Care Provider] - 11/04/18 11:00 am Activity:: Activity as Tolerated Equipment/Supplies:: No Equipment Needed Diet:: Carb Counting Discharge Orders Discharge Orders: Discharge Order (Routine); Ordered 10/25/18 Ordered By: Rossy Archuleta Other Ambulatory Orders: Basic Metabolic Panel (Routine) Timeframe: [id number] Location: Determined by Patient Ordered By: Rossy Archuleta Exam Narrative Exam Narrative: General: Pleasant and cooperative, A&Ox 3, sitting comfortably at the edge of the bed. HEENT: Normocephalic, atraumatic, pupils equal round, extraocular movements intact, mucous membranes moist. Cardiovascular: Heart has regular rate and rhythm, no murmur appreciated. Lungs: Respirations even and unlabored, lung sounds clear to auscultation throughout. Gastrointestinal: Normoactive bowel sounds, abdomen is soft, nondistended, nontender on palpation. Extremities: No clubbing, cyanosis or edema to bilateral lower extremities, pe jossue pulses palpable bilaterally. DS: Data Vitals/I&O Vitals and I&O: Vital Signs Temperature 36.5 C 10/25/18 08:34 Temperature Source Skin 10/25/18 08:34 Pulse 74 10/25/18 08:34 Pulse Rhythm Regular 10/25/18 01:15 Pulse 70 10/23/18 09:36 Respiratory Rate 16 10/25/18 08:34 Respiratory Effort Non-Labored 10/25/18 01:15 Respiratory Depth Normal 10/25/18 01:15 Respiratory Pattern Normal 10/25/18 01:15 Blood Pressure 127/84 10/25/18 08:34 Pulse Oximetry 96 10/25/18 08:34 Oxygen Delivery Method Room Air 10/25/18 08:34 Oxygen Flow Rate 0 10/25/18 08:34 Pain Level 0 10/25/18 08:34 Intake & Output 10/24/18 10/24/18 10/25/18 11:59 23:59 11:59 Intake Total 1662.5 / 4042.5 2380 / 4042.5 200 / 200 Output Total 3650 / 5250 1600 / 5250 3000 / 3000 Balance -1987.5 / -1207.5 780 / -1207.5 -2800 / -2800 Weight 109.3 kg 110.932 kg Intake: IV 1052.5 / 2452.5 1400 / 2452.5 100 / 100 Oral 610 / 1590 980 / 1590 100 / 100 Output: Urine 3650 / 5250 1600 / 5250 3000 / 3000 Other: Urine Color Yellow Yellow Yellow Urine Appearance Clear Clear Clear Urine Odor Normal Stool Occult Blood Negative Negative Negative Stool Size Large Moderate Moderate Stool Characteristics Soft Soft Soft Brown Formed Brown Voiding Methods Toilet Toilet Toilet Urinal Completed studies during hospitalization [Text1]: 10/22/18: CT OF THE ABDOMEN AND PELVIS: Comparison is made with May,. A noncontrast exam was performed. There is wall thickening and mild stranding seen around the cecum and ascending colon, as well as mild wall thickening of the transverse colon. There is also wall thickening and mild stranding in the surrounding fat involving the distal descending and rectosigmoid colon. There are scattered diverticula, but no focal evidence of diverticulitis. There are two areas of anastomosis in the sigmoid region. There is no evidence of obstruction. There is very little fecal material. There is no small bowel dilatation. There is no free air or free fluid. The lung bases are clear. The patient is status post cholecystectomy. There is mild liver enlargement, as well as fatty infiltration. The spleen is normal in size. The pancreas, adrenals and kidneys are unremarkable. The prostate is mildly enlarged. There is mild bladder wall thickening. The appendix appears normal. There are fatty-containing inguinal hernias, right greater than left. Degenerative changes are seen in the spine, greatest at L5-S1. IMPRESSION: Mild diffuse wall thickening and stranding surrounding the fat indicate colitis. There are diverticula but no evidence of focal diverticulitis. Labs on day of discharge: Labs from last 24 hours 10/25/18 10/25/18 10/22/18 06:50 06:50 16:25 WBC 10.19 RBC 4.65 Hgb 13.3 L Hct 40.0 MCV 86.0 MCH 28.6 MCHC 33.3 RDW 13.9 Plt Count 284 MPV 9.8 Sodium 141 Potassium 4.1 Chloride 107 Carbon Dioxide 25.1 Anion Gap 8.9 BUN 23 H D Creatinine 1.25 Estimated GFR/1.73 m2 57.44 Glucose 141 H Calcium 8.4 L Stool Source (see note) Cryptosporidium/Giardia (see note) Parasite Rprt Status (see note) PFSH Medical History Diverticulosis (Chronic) Hyperlipidemia (Chronic) Non-insulin dependent type 2 diabetes mellitus (Chronic) Surgical History S/P foot surgery, right (Resolved) S/P partial colectomy (Resolved) Cholecystectomy (06/03/14) Family History Maternal Grandfather Heart disease Father Esophageal cancer Social History Smoking/Tobacco Use Status: Current every day Alcohol Intake: current Drug use: Never Substance use type: does not use Do you feel safe at home: Yes Do you feel safe in your relationship?: Yes
--- NOTE | 2018-10-25 12:04 | PDOC.CMDIS ---
- If Service Date Differs Date of service: 10/25/18 Time of Service: 12:04 LACE Index Scoring Tool - Questions: Length of Stay (in days): 2 Acuity (Admit via E.D.?): Yes Comorbidities: Diabetes w/o Complication E.D. Visits: 1 - Answers: Total Score: 7 Risk of Readmission: Low Risk Care Management Discharge Reason for Hospitalization: LIZ, Colitis Discharge Plan: Román will return home today with no services. He will F/U with PCP and plan of care as prescribed. His friend will transport him home. Patient/Family Education Needs: Review DC instructions, any limitations, and discuss 'Ask Me Three'
[2018-10-25] MEDS: Insulin Aspart 300 UNITS/3 ML PEN SC (12:06)
== END 2018-10-25 12:33 | disposition home or self-care (01) | DRG 683 ==
LOC: ER 15:19 → MS 16:18
PROVIDERS: General Practice; Nurse Practitioner; Admitting Provider Internal Medicine; Emergency Provider Student in an Organized Health Care Education/Training Program; PCP Nurse Practitioner Family; Visit Provider Internal Medicine
DX: N17.9 Acute kidney failure, unspecified (principal); A09 Infectious gastroenteritis and colitis, unspecified; E87.1 Hypo-osmolality and hyponatremia; R10.32 Left lower quadrant pain; R19.7 Diarrhea, unspecified; E86.0 Dehydration; E87.6 Hypokalemia; E78.5 Hyperlipidemia, unspecified; E11.9 Type 2 diabetes mellitus without complications; Z79.84 Long term (current) use of oral hypoglycemic drugs; F17.210 Nicotine dependence, cigarettes, uncomplicated; Z90.49 Acquired absence of other specified parts of digestive tract; Z71.3 Dietary counseling and surveillance
CPT/HCPCS: 36415; 80048; 80053; 80076; 82550; 85027; 85652; 87329; 87505; 96361; 96365; 96368; 99223; 99232; 99239; 99285; 74176; 81003; 81015; 82710; 83630; 83735; 84443; 85025; 86140; 87081; 87086; 87324; 99220; 99284; G0378; J0744; J1644; J3480

== ENCOUNTER 2018-10-22 16:10 | Outpatient (REF) | payer MEDICARE, SELFPAY ==
[2018-10-21 19:33] LABS: Abs Immature Grans 0.05 k/cumm (0.0-0.09); Absolute Basophil Count 0.03 k/cumm (0.0-0.2); Absolute Eosinophil Count 0.29 k/cumm (0.0-0.7); Absolute Lymphocyte Count 1.83 k/cumm (1.2-3.4); Absolute Monocyte Count 1.41 k/cumm (0.11-0.7); Absolute Neutrophil Count 6.96 k/cumm (1.2-6.7); Basophils % 0.3; Eosinophils % 2.7; HCT 45.9 % (40.0-50.0); Immature Grans % 0.5; Lymphocytes % 17.3; Mean Corp. HGB Concentration 34.9 g/dL (32.0-36.0); Mean Corpuscular Hemoglobin 28.9 pg (27.0-33.0); Mean Platelet Volume 11.4 fL (8.0-11.0); Monocytes % 13.3; Neutrophils % 65.9; Platelet Count 273 x1000/uL (130-400); RBC 5.53 m/cumm (4.50-6.00); RBC Distribution Width 13.9 % (11.8-14.1); White Blood Cell Count 10.57 k/cumm (4.4-10.8)
[2018-10-21 19:38] LABS: ALT 55 U/L (12-78); AST 33 U/L (15-37); Albumin 3.1 g/dL (3.4-5.0); Alkaline Phosphatase 132 U/L (46-116); Anion Gap 12.9 mmol/L (3-11); BUN 79 mg/dL (7-18); Bilirubin, Total 0.4 mg/dL (0.2-1.0); C-Reactive Protein 8.87 mg/dL (0.0-0.3); CO2 28.1 mmol/L (21.0-32.0); Chloride 89 mmol/L (98-107); Estimated GFR 16.47 (mL/min/1.73m2); Glucose 149 mg/dL (70-100); Potassium 3.4 mmol/L (3.5-5.1); Sodium 130 mmol/L (136-145)
[2018-10-21 20:33] LABS: ESR 42 MM/HR (1-20)
[2018-10-21 21:34] LABS: CREATININE 3.69 mg/dL (0.70-1.30)
== END 2018-10-22 16:30 ==
LOC: NCHCN 16:10
PROVIDERS: PCP Nurse Practitioner Family; Visit Provider Nurse Practitioner Family
DX: R10.9 Unspecified abdominal pain (principal); R19.7 Diarrhea, unspecified
CPT/HCPCS: 80053; 85652; 85025; 86140

== ENCOUNTER 2018-11-04 12:36 | Outpatient (REF) | payer MEDICARE, SELFPAY ==
[2018-11-04 19:20] LABS: Anion Gap 8.3 mmol/L (3-11); BUN 22 mg/dL (7-18); CO2 26.7 mmol/L (21.0-32.0); CREATININE 1.13 mg/dL (0.70-1.30); Chloride 100 mmol/L (98-107); Glucose 414 mg/dL (70-100); Potassium 5.2 mmol/L (3.5-5.1); Sodium 135 mmol/L (136-145)
== END 2018-11-04 12:56 ==
LOC: NCHCN 12:36
PROVIDERS: PCP Nurse Practitioner Family; Visit Provider Nurse Practitioner Family
DX: N17.9 Acute kidney failure, unspecified (principal)
CPT/HCPCS: 80048

== ENCOUNTER 2018-12-01 16:20 | Outpatient (CLI) | payer MEDICARE, SELFPAY ==
--- NOTE | 2018-12-01 15:50 | DI.RAD_ITS ---
SYMPTOMS/DIAGNOSIS: RIGHT KNEE PAIN, M25.561, S/P HIT WITH BASEBALL, NOW WITH RIGHT ANTERIOR KNEE PAIN/SWELLING RIGHT KNEE: Three views were obtained. There are ossific densities at the anterior tibial tubercle. There may be associated soft tissue edema in this area as well. There also appears to be a small knee joint effusion. Narrowing of the medial tibiofemoral cartilaginous joint space noted. Minimal hypertrophic spurring of the bones of the knee noted. CONCLUSION: Chronic deformity of anterior tibial tubercle, question superimposed acute inflammatory process or trauma. Please correlate clinically.
== END 2018-12-01 16:40 ==
PROVIDERS: PCP Nurse Practitioner Family; Visit Provider Family Medicine
DX: M25.561 Pain in right knee (principal); M79.89 Other specified soft tissue disorders; M25.461 Effusion, right knee
CPT/HCPCS: 73562

== ENCOUNTER → 2019-02-16 10:27 | Outpatient (BNVA) | payer MEDICARE, SELFPAY | PROVIDERS: PCP Nurse Practitioner Family; Referring Provider Nurse Practitioner Family; Visit Provider Physical Therapy Assistant | DX: Z12.11 Encounter for screening for malignant neoplasm of colon (principal); Z86.010 Personal history of colon polyps; E11.9 Type 2 diabetes mellitus without complications; I10 Essential (primary) hypertension ==

== ENCOUNTER 2019-05-19 12:14 | Outpatient (REF) | payer MEDICARE, SELFPAY ==
[2019-05-19 12:57] LABS: HCT 47.5 % (40.0-50.0); HGB 15.5 g/dL (13.5-17.5); Mean Corp. HGB Concentration 32.6 g/dL (32.0-36.0); Mean Corpuscular Hemoglobin 28.8 pg (27.0-33.0); Mean Corpuscular Volume 88.3 fL (80-95); Mean Platelet Volume 11.4 fL (8.0-11.0); Platelet Count 227 x1000/uL (130-400); RBC 5.38 m/cumm (4.50-6.00); RBC Distribution Width 14.4 % (11.8-14.1); White Blood Cell Count 7.85 k/cumm (4.4-10.8)
[2019-05-19 13:36] LABS: Anion Gap 9.5 mmol/L (3-11); BUN 12 mg/dL (7-18); CO2 28.5 mmol/L (21.0-32.0); CREATININE 1.11 mg/dL (0.70-1.30); Chloride 104 mmol/L (98-107); Glucose 185 mg/dL (70-100); Potassium 4.5 mmol/L (3.5-5.1); Sodium 142 mmol/L (136-145)
== END 2019-05-19 12:34 ==
LOC: NCHCN 12:14
PROVIDERS: PCP Nurse Practitioner Family; Visit Provider Nurse Practitioner Family
DX: R53.83 Other fatigue (principal); E11.9 Type 2 diabetes mellitus without complications
CPT/HCPCS: 80048; 85027

== ENCOUNTER 2019-06-15 15:11 | Outpatient (REF) | payer MEDICARE, SELFPAY ==
--- NOTE | 2019-06-15 14:30 | SKI_PTH ---
PATIENT: Román Juarez LOC: [facility] U#:[id number] AGE/SX: 68/M ROOM: RE06/15/[address]: Rohit Verdugo : 1950 BED: DIS: 06/15/2019 SPEC #: [id number] RECD: 06/16/19 12:29 STATUS: JERMAINE REQ #: [id number] MARTÍN: 06/15/19 14:[address]: Rohit Verdugo DEPT: Surgical Specimen RECD BY: Yuki Gold ENTERED: 06/16/19 12:29 SP TYPE: SANJAY PIMENTEL DR: Mikki Mercado Tissues: 1 - SKIN BIOPSY(SHAVE/PUNCH) Procedures: SKIN LEVEL 4 Comments: [id number]
== END 2019-06-15 15:31 ==
LOC: NCHCN 15:11
PROVIDERS: PCP Nurse Practitioner Family; Visit Provider Family Medicine
DX: L82.1 Other seborrheic keratosis (principal)
CPT/HCPCS: 88305

== ENCOUNTER → 2019-06-19 09:55 | Outpatient (BNVA) | payer MEDICARE, SELFPAY | PROVIDERS: PCP Nurse Practitioner Family; Referring Provider Nurse Practitioner Family; Visit Provider Physical Therapy Assistant | DX: Z12.11 Encounter for screening for malignant neoplasm of colon (principal) ==

== ENCOUNTER 2019-06-29 07:50 | Day surgery (SDC) | payer MEDICARE, SELFPAY ==
--- NOTE | 2019-06-28 18:22 | W.COLOREPORT ---
Date of service: 06/29/19 Colonoscopy Report Date of procedure: 06/29/19 Pre-op diagnosis general: CRC screening Post-op diagnosis procedure note: same Procedure: ce Surgeon: Pinky Larry Anesthesia proc note operative: GETA Estimated blood loss (mL): 0 Pathology: none sent Complications: None Prep: Miralax/Dulcolax Procedure Description: After informed consent was obtained the patient was taken to the procedure room and placed in a left decubitous position. Monitors were applied and a time out was done. The patients name, date of , procedure, allergies to medications and metal in their body was reviewed. The patient was then sedated. Once sedated and comfortable a rectal exam was done. External exam was normal. Internal exam revealed a normal sphincter tone and no palpable masses. The scope was then introduced and retrofelexed. no internal hemorrhoids were identified. The scope was then advanced to the cecum w/out difficulty. The TI and appendiceal orifice were identified. The prep was adequate. The scope was then slowly retracted over 8 minutes back into the rectum. There were no polyps AVMs identified. He does have a few small scattered diverticuli. No signs of active bleeding or infection. The anastomosis is widely patent. the scope was removed and the patient was woken up and taken back to Same day surgery in stable condition. The patient tolerated the procedure well and there were no immediate complications. Follow up: The patient does not require any further CE unless they develop changes in bowel habits or other new gastrointestinal complaints.
[2019-06-29 08:09] VITALS: BP 126/73; PULSE 102; RESP 18; TEMP 36.4; O2SAT 93
[2019-06-29] MEDS: Lactated Ringers 1,000 ML 80 ML IV (08:32)
--- NOTE | 2019-06-29 09:44 | W.PM.DSUDISC ---
Discharge Plan Disposition Patient Disposition: HOME Condition: Good Discharge Details Reason For Visit: SCREENING Attending Provider: Pinky Larry Primary Care Provider: Mikki Mercado Home Meds and New Rx's Prescriptions: Continued triamcinolone acetonide 0.1 % cream 1 applic TP BID RF: 0 losartan 25 mg tablet 25 mg PO DAILY RF: 0 atorvastatin 20 mg Tablet 20 mg PO HS RF: 0 sildenafil [Viagra] 50 mg Tablet 50 mg PO PRN PRNRF: 0 aspirin [Aspir-Low] 81 mg Tablet,Delayed Release (Dr/Ec) 81 mg PO DAILY RF: 0 metformin 1,000 mg Tablet 1,000 mg PO BID RF: 0 Discontinued polyethylene glycol 3350 17 gram/dose powder 238 g PO ONCE Qty: 238 RF: 0 bisacodyl [Dulcolax (bisacodyl)] 5 mg tablet,delayed release (DR/EC) 5 mg PO ONCE Qty: 4 RF: 0 Discharge Instructions Instructions: High Fiber Diet (GEN) Additional Instructions: Findings:few small divertic no polyps Follow up:PCP as needed no further C scopes needed unless having problems Please call if you develop: fevers >101.5 Nausea or Vomiting Abdominal pain that is not transient DAY SURGERY UNIT POST COLONOSCOPY INSTRUCTIONS 1. Because there will be medication in your system for the next 24 hours, you may feel a little sleepy. Your coordination will be affected. Therefore: a. Do not drive or operate dangerous equipment for 24 hours. b. Do not drink alcohol beverages for 24 hours (not even beer). c. Plan to go home and rest for the day. 2. Generally there are no restrictions on your activity after a day or so has gone by, but you may feel a bit fatigued for a few days. 3 After you arrive home you may have a light meal and return to a normal diet as you can tolerate it without feeling sick to your stomach. 4. After surgery, you may feel pain or discomfort. This should be only transient, but if it persists please contact your doctor. 5. If there are any questions regarding the findings of your procedure, please feel free to contact your doctor. 6. If you are unable to contact your doctor with a problem, contact the hospital at [phone]. 7. Continue all your regular medications unless directed otherwise. I understand the above instructions and have no questions. Signature of Patient or Responsible Adult Escort Date/Time Name of Responsible Adult Escort Signature of Nurse Date/Time Discharge Orders Discharge Orders: Discharge Order (Routine); Ordered 06/28/19 Ordered By: Pinky Larry DS: Diagnosis Discharge Diagnosis (1) Diverticula of colon: Status: Acute
[2019-06-29 10:15] VITALS: BP 109/64; PULSE 83; RESP 16; TEMP 36.4; O2SAT 96
== END 2019-06-29 10:35 | disposition home or self-care (01) ==
PROVIDERS: PCP Nurse Practitioner Family; Visit Provider Surgery
PROC: 0DJD8ZZ Inspection of Lower Intestinal Tract, Via Natural or Artificial Opening Endoscopic (ICD-10-PCS; CPT 45378; principal; 2019-06-29 09:00)
DX: Z12.11 Encounter for screening for malignant neoplasm of colon (principal); Z86.010 Personal history of colon polyps; Z90.49 Acquired absence of other specified parts of digestive tract; K57.30 Diverticulosis of large intestine without perforation or abscess without bleeding; I10 Essential (primary) hypertension; E11.9 Type 2 diabetes mellitus without complications; Z79.84 Long term (current) use of oral hypoglycemic drugs
CPT/HCPCS: G0121; G0105

== ENCOUNTER 2019-07-10 17:14 | Outpatient (REF) | payer MEDICARE, SELFPAY ==
[2019-07-10 18:06] LABS: Uric Acid 6.3 mg/dL (3.5-7.2)
== END 2019-07-10 17:34 ==
LOC: NCHCN 17:14
PROVIDERS: PCP Nurse Practitioner Family; Visit Provider Nurse Practitioner Family
DX: M10.9 Gout, unspecified (principal)
CPT/HCPCS: 84550

== ENCOUNTER 2020-02-08 19:32 | Outpatient (REF) | payer MEDICARE, SELFPAY ==
[2020-02-08 21:41] LABS: Anion Gap 12.5 mmol/L (3-11); BUN 16 mg/dL (7-18); CO2 22.5 mmol/L (21.0-32.0); CREATININE 1.03 mg/dL (0.70-1.30); Calcium 9.1 mg/dL (8.5-10.1); Calculated LDL 60 mg/dL (<100); Chloride 104 mmol/L (98-107); Cholesterol 134 mg/dL (<200); Glucose 188 mg/dL (74-106); HDL Cholesterol 37 mg/dL (40-60); Potassium 4.3 mmol/L (3.5-5.1); Sodium 139 mmol/L (136-145); Triglyceride 186 mg/dL (<150)
== END 2020-02-08 19:52 ==
LOC: NCHCN 19:32
PROVIDERS: PCP Nurse Practitioner Family; Visit Provider Nurse Practitioner Family
DX: E11.9 Type 2 diabetes mellitus without complications (principal); E78.5 Hyperlipidemia, unspecified; M79.672 Pain in left foot
CPT/HCPCS: 80048; 80061; 83036

== ENCOUNTER 2020-06-03 11:00 | Outpatient (CLI) | payer MEDICARE, SELFPAY ==
--- NOTE | 2020-06-03 13:54 | DI.RAD_ITS ---
EXAM: XR HIP RT COMPLETE AP PELVIS CLINICAL HISTORY: RT HIP PAIN, M25.551. TECHNIQUE: 2D digital imaging was performed. COMPARISON: No exams were available for comparison FINDINGS: Right hip is well maintained. Mild degenerative changes are seen in the lower lumbar spine. The sac roiliac joints and symphysis pubis are intact. The bones are normally mineralized. No acute fractur e or dislocation is present. The soft tissues are unremarkable. IMPRESSION: Unremarkable right hip. DATA REPOSITORY: RADIATION DOSE DELIVERED:
== END 2020-06-03 11:20 ==
PROVIDERS: PCP Nurse Practitioner Family; Visit Provider Nurse Practitioner Family
DX: M25.551 Pain in right hip (principal)
CPT/HCPCS: 73502

== ENCOUNTER 2021-03-16 18:00 | Outpatient (REF) | payer MEDICARE, SELFPAY ==
[2021-03-16 13:55] LABS: Anion Gap 9.8 mmol/L (3-11); BUN 16 mg/dL (7-18); CO2 27.2 mmol/L (21.0-32.0); CREATININE 1.1 mg/dL (0.70-1.30); Chloride 105 mmol/L (98-107); Glucose 211 mg/dL (74-106); Potassium 4.7 mmol/L (3.5-5.1); Sodium 142 mmol/L (136-145)
[2021-03-16 14:03] LABS: HCT 45.1 % (40.0-50.0); HGB 14.5 g/dL (13.5-17.5); MCH 28.9 pg (27.0-33.0); MCHC 32.2 % (32.0-36.0); MCV 89.8 fL (80-95); MPV 11.3 fL (8.0-11.0); Platelet Count 210 10^3/uL (130-400); RBC 5.02 10^6/uL (4.36-5.78); RDW 13.6 % (11.8-14.1); RDW-SD 45.4 fL; WBC 9.72 10^3/uL (4.4-10.8)
== END 2021-03-16 18:01 | disposition home or self-care (01) ==
LOC: NCHCN 18:00
PROVIDERS: PCP Nurse Practitioner Family; Visit Provider Nurse Practitioner Family
DX: E11.9 Type 2 diabetes mellitus without complications (principal); R55 Syncope and collapse
CPT/HCPCS: 80048; 85027

== ENCOUNTER 2021-12-01 01:26 | Outpatient (REF) | payer MEDICARE, SELFPAY ==
[2021-12-01 14:51] LABS: Anion Gap 12.2 mmol/L (3-11); BUN 20 mg/dL (7-18); CO2 22.8 mmol/L (21.0-32.0); CREATININE 1.1 mg/dL (0.70-1.30); Calcium 8.7 mg/dL (8.5-10.1); Chloride 104 mmol/L (98-107); Glucose 233 mg/dL (74-106); Sodium 139 mmol/L (136-145)
== END 2021-12-01 01:27 | disposition home or self-care (01) ==
LOC: NCHCN 01:26
PROVIDERS: PCP Nurse Practitioner Family; Visit Provider Nurse Practitioner Family
DX: E11.9 Type 2 diabetes mellitus without complications (principal)
CPT/HCPCS: 80048

== ENCOUNTER 2022-08-16 13:07 | Outpatient (REF) | payer MEDICARE, SELFPAY ==
[2022-08-17 08:59] LABS: PSA, Screening 0.9 ng/mL (<=6.5)
== END 2022-08-16 13:08 | disposition home or self-care (01) ==
LOC: NCHCN 13:07
PROVIDERS: PCP Nurse Practitioner Family; Visit Provider Nurse Practitioner Family
DX: Z12.5 Encounter for screening for malignant neoplasm of prostate (principal)
CPT/HCPCS: 84153

== ENCOUNTER 2023-01-21 14:41 | Outpatient (REF) | payer MEDICARE, SELFPAY ==
[2023-01-21 18:48] LABS: Bilirubin Negative (Negative); Blood Trace-intact (Negative); Clarity Cloudy (Clear); Glucose Negative (Negative); Ketones Negative (Negative); Leukocyte Esterase Negative (Negative); Nitrite Negative (Negative); Specific Gravity 1.025 (1.005-1.025); Urobilinogen 0.2 mg/dL (Up to 0.2)
[2023-01-21 18:54] LABS: Bacteria Negative HPF (Negative); C & S Indicated? No; Casts 0-2 Hyaline LPF (Negative); Crystals Many Amorphous HPF (Negative); Epithelial Cells Rare HPF (Negative); Mucus Trace (Negative); RBC 0-2 HPF (0-2); WBC Negative HPF (0-5)
[2023-01-21 19:05] LABS: Hemoglobin A1C 7.6 % (<5.7)
[2023-01-21 19:35] LABS: ALT 34 U/L (16-63); AST 24 U/L (15-37); Albumin 3.7 g/dL (3.4-5.0); Alkaline Phosphatase 106 U/L (46-116); Anion Gap 10.1 mmol/L (3-11); BUN 17 mg/dL (7-18); Bilirubin, Total 0.5 mg/dL (0.2-1.0); CO2 23.9 mmol/L (21.0-32.0); CREATININE 1.1 mg/dL (0.70-1.30); Calcium 8.9 mg/dL (8.5-10.1); Calculated LDL 47 mg/dL (<100); Chloride 106 mmol/L (98-107); Cholesterol 107 mg/dL (<200); Estimated GFR 71.32 (mL/min/1.73m2); Glucose 166 mg/dL (74-106); HDL Cholesterol 41 mg/dL (40-60); Potassium 4.8 mmol/L (3.5-5.1); Sodium 140 mmol/L (136-145); Total Protein 7.5 g/dL (6.4-8.2); Triglyceride 95 mg/dL (<150)
== END 2023-01-21 14:42 | disposition home or self-care (01) ==
LOC: NCHCN 14:41
PROVIDERS: PCP Nurse Practitioner Family; Visit Provider Nurse Practitioner Family
DX: E11.9 Type 2 diabetes mellitus without complications (principal); R35.0 Frequency of micturition; R10.9 Unspecified abdominal pain; E78.5 Hyperlipidemia, unspecified
CPT/HCPCS: 80053; 80061; 81003; 81015; 83036

== ENCOUNTER 2023-05-04 20:28 | Emergency (ER) | payer MEDICARE, SELFPAY ==
[2023-05-04 20:32] VITALS: BP 174/79; PULSE 84; RESP 16; TEMP 36.7; O2SAT 97
--- NOTE | 2023-05-04 20:53 | W.ED.GENAD ---
Discharge Plan Disposition Patient Disposition: Home Condition: Stable Discharge Details Clinical Impression: Dog bite of vermilion border of lower lip, Laceration of lower lip Primary Care Provider: Mable Garcia ED Provider: Dorota Tapia Home Meds and New Rx's Prescriptions: New amoxicillin-pot clavulanate 875-125 mg tablet 1 tab PO BID 10 Days Qty: 20 0RF No Action triamcinolone acetonide 0.1 % cream 1 applic TP BID losartan 25 mg tablet 25 mg PO DAILY tamsulosin 0.4 mg capsule 0.4 mg PO DAILY Patient Comments: Take 1 capsule by mouth every night metoprolol succinate 25 mg tablet extended release 24 hr 25 mg PO DAILY Januvia 100 mg tablet 100 mg PO DAILY atorvastatin 20 mg Tablet 20 mg PO HS sildenafil [Viagra] 50 mg Tablet 50 mg PO PRN PRN aspirin [Aspir-Low] 81 mg Tablet,Delayed Release (Dr/Ec) 81 mg PO DAILY metformin 1,000 mg Tablet 1,000 mg PO BID Discharge Instructions Instructions: Animal Bite (ED), Laceration (ED) Additional Instructions: Take the antibiotics twice daily with yogurt or probiotic as directed. Rinse out your mouth after eating or drinking anything. Please have the sutures removed in 5 to 7 days. Return sooner for any signs of infection, drainage red streaks or concerns. Please take Tylenol or Ibuprofen with food every 4-6 hours as needed for pain and swelling. You may return to the ER to have the sutures removed Referrals: Mable Garcia [Primary Care Provider] - 5 days Medical Decision Making 72 year old male presents to the ED with laceration to left lower lip from a dog bite which occurred just [employer]. Patients dog bit his lip in a provoked interaction, patient put his face in the dogs face. He has a 1 cm laceration noted, bleeding controlled. Past medical history includes acute kidney injury, colitis, hyperlipidemia type II rlp-vlqvpmk-lqlihnpge diabetes, depression. Laceration cleaned with normal saline, anesthetized with 1% lidocaine patient tolerated well. Laceration repaired with 4 simple interrupted sutures with 6.0 Prolene. Discussed home care with patient. Patient was given Augmentin here in the department. This text was generated using [employer] dictation system, please disregard any oddities of phrase or misspellings. HPI General Mode of arrival: ambulatory. Date/Time Provider Initiated Documentation: 05/04/23 20:39. Limitations to Documentation: no limitations. Information obtained by: patient, RN notes reviewed and old records reviewed. HPI Narrative: 72 year old male presents to the ED with laceration to left lower lip from a dog bite which occurred just [employer]. Patients dog bit his lip in a provoked interaction, patient put his face in the dogs face. He has a 1 cm laceration noted, bleeding controlled. Past medical history includes acute kidney injury, colitis, hyperlipidemia type II lge-ntcefaw-hieuomzty diabetes, depression. Related Data Home Medications Medication Instructions Recorded Confirmed aspirin 81 mg tablet,delayed 81 mg PO DAILY 10/22/18 05/04/23 release (Aspir-Low) atorvastatin 20 mg tablet 20 mg PO HS 10/22/18 05/04/23 metformin 1,000 mg tablet 1,000 mg PO BID 10/22/18 05/04/23 sildenafil 50 mg tablet (Viagra) 50 mg PO PRN PRN 10/22/18 05/04/23 triamcinolone acetonide 0.1 % 1 applic topical BID 12/09/18 05/04/23 topical cream losartan 25 mg tablet 25 mg PO DAILY 06/19/19 05/04/23 amoxicillin 875 mg-potassium 1 tab PO BID 10 days #20 tabs 05/04/23 clavulanate 125 mg tablet metoprolol succinate 25 mg 25 mg PO DAILY 05/04/23 05/04/23 tablet,extended release 24 hr sitagliptin phosphate 100 mg 100 mg PO DAILY 05/04/23 05/04/23 tablet (Januvia) tamsulosin 0.4 mg capsule 0.4 mg PO DAILY 05/04/23 05/04/23 Previous Rx's Medication Instructions Recorded amoxicillin 875 mg-potassium 1 tab PO BID 10 days #20 tabs 05/04/23 clavulanate 125 mg tablet Allergies Allergy/AdvReac Type Severity Reaction Status Date / Time lisinopril Allergy Severe half of Verified 05/04/23 20:37 the side of my tongue swelled General Stated Complaint: AnimalBite MITESH: 4 Review of Systems Integumentary/Breasts Skin/Breast: Reports as per HPI and Reports wounds (Laceration left lower lip) PFSH All Active Problems (Updated 05/04/23 @ 21:51 by Dorota Tapia NP) Dog bite of vermilion border of lower lip (Acute) Laceration of lower lip (Acute) Diverticula of colon (Acute) Cholelithiasis with acute cholecystitis (Acute 06/03/14) H/O surgical procedure (Chronic) a. sigmoid colon resection LIZ (acute kidney injury) (Acute) Colitis (Acute) Hyperlipidemia (Acute) Non-insulin dependent type 2 diabetes mellitus (Acute) Discharge planning issues (Acute) DVT prophylaxis (Acute) Tobacco abuse (Chronic) Hypokalemia (Acute) Hyponatremia (Acute) Encounter for screening colonoscopy (Acute) Angioedema (Acute) Tongue swelling (Acute) Cerumen impaction (Acute) Deviated nasal septum (Acute) Medical History (Updated 05/04/23 @ 21:51 by Dorota Tapia NP) Chronic anxiety pt. denies this Colonoscopy planned (~06/2019) Depression pt. denies this Diverticulosis Hyperlipidemia Macular degeneration Non-insulin dependent type 2 diabetes mellitus Tobacco dependence Type 2 diabetes mellitus Surgical History Cholecystectomy (06/03/14) Lap. S/P foot surgery, right [place] [facility] [place] History Maternal Grandfather Heart disease Father Esophageal cancer Social History (Updated 02/16/19 @ 11:07 by CLIVE Johnson) Smoking/Tobacco Use Status: Current-Occasional Smoking risk assessment performed?: Yes Alcohol Intake: current Alcohol Intake frequency: a few times a week Alcohol type: hard liquor Drug use: Socially Substance use type: marijuana Do you feel safe at home: Yes Additional Social history: not in current relationship Exam [facility] Nose image: 1. Approximate 2 cm partial thickness laceration/ dog bite to left lower lip, irregular, gaping Face and sinus: face symmetric Mouth: tongue normal Course Vital Signs Vital signs: Vital Signs Temperature 36.7 C 05/04/23 20:32 Pulse 84 05/04/23 20:32 Respiratory Rate 16 05/04/23 20:32 Blood Pressure 174/79 H 05/04/23 20:32 Pulse Oximetry 97 05/04/23 20:32 Temperature 36.7 C 05/04/23 20:32 Temperature Source Temporal Artery Scan 05/04/23 20:32 Pulse 84 05/04/23 20:32 Respiratory Rate 16 05/04/23 20:32 Respiratory Effort Normal 05/04/23 20:32 Blood Pressure 174/79 H 05/04/23 20:32 Blood Pressure Position Sitting 05/04/23 20:32 Pulse Oximetry 97 05/04/23 20:32 Oxygen Delivery Method Room Air 05/04/23 20:32 Oxygen Flow Rate 0 05/04/23 20:32 Procedures Laceration Laceration 1: Site: lip (left lower) Side (If applicable): left Size (cm): 2 Description: irregular and contaminated Depth: simple, single layer Local Anesthetic: Lidocaine 1% Amount of anesthesia used (mL): 3 Pre-repair: wound explored, irrigated extensively and deep structures intact Skin layer closed with: nylon Size (cm): 6-0 Number of sutures: 4 Technique: simple, interrupted
--- NOTE | 2023-05-04 21:11 | NUR.NOTE ---
Animal Bite Report Form faxed to [facility] Health Officer Raciel Moralez.Nursing Note:
[2023-05-04] MEDS: Amoxicillin 875/Clav. 125 TAB PO (21:57)
[2023-05-04] MEDS: Amox. 875/Clav. 125, 2 TABS/BTL 1 TAB PO (22:04)
== END 2023-05-04 22:02 | disposition home or self-care (01) ==
PROVIDERS: Emergency Provider Registered Nurse Emergency; PCP Nurse Practitioner Family
DX: S01.551A Open bite of lip, initial encounter (principal); E11.9 Type 2 diabetes mellitus without complications; F17.210 Nicotine dependence, cigarettes, uncomplicated; Z79.84 Long term (current) use of oral hypoglycemic drugs; Z90.49 Acquired absence of other specified parts of digestive tract; W54.0XXA Bitten by dog, initial encounter; Y93.K9 Activity, other involving animal care; Z23 Encounter for immunization

== ENCOUNTER 2023-10-18 11:23 | Outpatient (REF) | payer MEDICARE, SELFPAY ==
[2023-10-18 15:55] LABS: ALT 44 U/L (16-63); AST 23 U/L (15-37); Albumin 3.6 g/dL (3.4-5.0); Alkaline Phosphatase 96 U/L (46-116); Anion Gap 9.3 mmol/L (3-11); BUN 18 mg/dL (7-18); Bilirubin, Total 0.5 mg/dL (0.2-1.0); CO2 27.7 mmol/L (21.0-32.0); CREATININE 1.2 mg/dL (0.70-1.30); Calcium 8.9 mg/dL (8.5-10.1); Calculated LDL 74 mg/dL (<100); Chloride 105 mmol/L (98-107); Cholesterol 149 mg/dL (<200); Estimated GFR 63.85 (mL/min/1.73m2); Glucose 235 mg/dL (74-106); HDL Cholesterol 42 mg/dL (40-60); Potassium 4.3 mmol/L (3.5-5.1); Sodium 142 mmol/L (136-145); Total Protein 7.4 g/dL (6.4-8.2); Triglyceride 168 mg/dL (<150)
[2023-10-18 16:29] LABS: Hemoglobin A1C 7.4 % (<5.7)
[2023-10-18 16:34] LABS: COMMENT (LAB VIEW ONLY) 183.47 mg/dL
[2023-10-18 17:29] LABS: Microalb ug/mg Crea 105.8 ug/mg Cr
== END 2023-10-18 11:24 | disposition home or self-care (01) ==
LOC: NCHCN 11:23
PROVIDERS: PCP Nurse Practitioner Family; Visit Provider Nurse Practitioner Family
DX: E11.9 Type 2 diabetes mellitus without complications (principal); E78.5 Hyperlipidemia, unspecified
CPT/HCPCS: 80053; 80061; 82043; 82570; 83036

== ENCOUNTER → 2023-12-06 00:49 | Outpatient (CLI) | payer MEDICARE, SELFPAY ==
--- NOTE | 2023-12-06 13:54 | DI.CTLCSR_ITS ---
Exam(s) CT CHEST LUNG CANCER SCREEN EXAM: CT CHEST LUNG CANCER SCREEN CLINICAL HISTORY: F17.210 Nicotine dependence TECHNIQUE: Imaging Protocol: Axial computed tomography images with coronal and sagittal reformatted images were created and reviewed. Low dose screening protocol. COMPARISON: CR CHEST 2 VIEWS PA,LAT from 06/02/2014 FINDINGS: Tracheobronchial tree: No bronchiectasis or mucus plugging. Mediastinum and Christiane: No dominant adenopathy or fluid collection. Pulmonary parenchyma: No consolidation or dominant measurable mass. Minimal emphysematous changes. Lung Nodules: None. Pleura: No effusion. No pneumothorax. Heart: The heart is not dilated. Mild coronary artery calcifications are seen. Aorta: Thoracic aorta non-dilated. Upper abdomen: Unremarkable. Status post cholecystectomy. Bones: Unremarkable for age. Soft Tissues: Unremarkable. IMPRESSION: No suspicious pulmonary nodules. Lung RADS Cat 1 - Negative: No nodules and definitely benign nodules Lung-RADS 1.0 CATEGORIES: Category 0 - Prior chest CT exam(s) being located for comparison. Category 1 - Annual screening in 12 months. No nodules or definitely benign nodules. Category 2 - Annual screening in 12 months. Benign appearance. Nodules with low likelihood of becomin g active cancer. Category 3 - 6-month follow-up. Probably benign. Short-term follow-up suggested. Nodules with low lik elihood of becoming active cancer. Category 4A - 3-month follow-up and CT/PET if >8 mm in size. Suspicious finding. Findings which requi re additional testing. Category 4B - Findings which require additional testing and tissue sampling. Category 4X - Category 3 or 4 nodules with additional features or imaging findings that increases the suspicion of malignancy. Modifier S- Potentially clinically significant findings (non lung cancer) RADIATION DOSE DELIVERED: 98.92mGy.cm Total DLP DATA REPOSITORY: All CT scans at this facility are submitted to the National Radiology Data Registry (NRDR) Dose Index Registry (DIR) with the [employer] (ACR). RADIATION OPTIMIZATION: All CT scans at this facility use at least one of these dose optimization te chniques: automated exposure control; mA and/or kV adjustment per patient size (includes targeted exa ms where dose is matched to clinical indication); or iterative reconstruction.
== END ==
PROVIDERS: PCP Nurse Practitioner Family; Visit Provider Nurse Practitioner Family
DX: F17.210 Nicotine dependence, cigarettes, uncomplicated (principal); Z12.2 Encounter for screening for malignant neoplasm of respiratory organs
CPT/HCPCS: 71271

== ENCOUNTER 2024-05-15 15:08 | Outpatient (REF) | payer MEDICARE, SELFPAY ==
[2024-05-15 19:31] LABS: COMMENT (LAB VIEW ONLY) 174.53 mg/dL; Microalb ug/mg Crea 134.1 ug/mg Cr
== END 2024-05-15 15:09 | disposition home or self-care (01) ==
LOC: NCHCN 15:08
PROVIDERS: PCP Nurse Practitioner Family; Visit Provider Nurse Practitioner Family
DX: E11.9 Type 2 diabetes mellitus without complications (principal)
CPT/HCPCS: 82043; 82570

== ENCOUNTER 2024-09-10 15:29 | Emergency (ER) | payer MEDICARE, SELFPAY ==
[2024-09-10 15:30] VITALS: BP 150/89; PULSE 94; RESP 20; TEMP 35.8; O2SAT 98
--- NOTE | 2024-09-10 15:47 | ED.GENADUL_ITS ---
Discharge Plan Disposition Patient Disposition: Home Condition: Stable Discharge Details Clinical Impression: Diarrhea Primary Care Provider: Mable Garcia ED Provider: Lalo Powell Home Meds and New Rx's Prescriptions: Continued losartan 25 mg tablet 25 mg PO DAILY atorvastatin 20 mg tablet 10 mg PO HS metoprolol succinate 25 mg tablet extended release 24 hr 12.5 mg PO DAILY clotrimazole-betamethasone 1-0.05 % cream 1 applic topical BID tamsulosin 0.4 mg capsule 0.4 mg PO DAILY Patient Comments: Take 1 capsule by mouth every night Januvia 100 mg tablet 100 mg PO DAILY sildenafil [Viagra] 50 mg Tablet 50 mg PO PRN PRN aspirin [Aspir-Low] 81 mg Tablet,Delayed Release (Dr/Ec) 81 mg PO DAILY metformin 1,000 mg Tablet 1,000 mg PO BID Discharge Instructions Additional Instructions: You can try [id number]-[id number]-[id number] remedies such as Pepto-Bismol. Diarrhea. I would recommend following up with your primary care provider if the symptoms continue. If you feel more ill or develop new symptoms such as severe abdominal pain or high fevers return to the emergency department for reevaluation. HPI General Mode of arrival: ambulatory . Date/Time Provider Initiated Documentation: 09/10/24 15:30 . Limitations to Documentation: no limitations . Information obtained by: patient . History of Present Illness 73 year old M presents to the emergency department with the chief complaint of diarrhea, described as moderate, Patient started experiencing this day(s) (10) and it has been constant. No relieving factors improve symptom(s), No exacerbating factors reported . Patient notes no other symptoms.. Patient did receive the following treatments prior to arrival, none Related Data Home Medications ?Medication ?Instructions ?Recorded ?Confirmed aspirin 81 mg tablet,delayed 81 mg PO DAILY 10/22/18 09/10/24 release (Aspir-Low) metformin 1,000 mg tablet 1,000 mg PO BID 10/22/18 09/10/24 sildenafil 50 mg tablet (Viagra) 50 mg PO PRN PRN 10/22/18 09/10/24 losartan 25 mg tablet 25 mg PO DAILY 06/19/19 09/10/24 sitagliptin phosphate 100 mg 100 mg PO DAILY 05/04/23 09/10/24 tablet (Januvia) tamsulosin 0.4 mg capsule 0.4 mg PO DAILY 05/04/23 09/10/24 atorvastatin 20 mg tablet 10 mg PO HS 10/25/23 09/10/24 clotrimazole-betamethasone 1 1 applic topical BID 10/25/23 09/10/24 %-0.05 % topical cream metoprolol succinate 25 mg 12.5 mg PO DAILY 10/25/23 09/10/24 tablet,extended release 24 hr Allergies Allergy/AdvReac Type Severity Reaction Status Date / Time lisinopril Allergy Severe half of Verified 09/10/24 15:35 the side of my tongue swelled General Stated Complaint: Nausea/Vomit/Diar MITESH: 3 Review of Systems All systems reviewed & are unremarkable except as noted in HPI and below Constitutional Constitutional: Denies chills, Denies fever(s) and Denies weakness ENT Ears, Nose, Mouth, and Throat: Denies change in voice Cardiovascular Cardiovascular: Denies chest pain and Denies dyspnea Respiratory Respiratory: Denies cough and Denies dyspnea Gastrointestinal Gastrointestinal: Denies abdominal pain, Reports cramping, Reports diarrhea, Denies nausea and Denies vomiting Neurologic Neurologic: Denies weakness Exam Const General: no acute distress Orientation: alert [facility] Head: normal to inspection Ears: external ears normal General nose exam: external nose normal Mouth: moist mucous membranes Eyes General: appearance normal, both eyes and all related structures Neck Neck: normal visual inspection Resp Effort & Inspection: normal respiratory effort and able to speak in complete sentences Cardio Rate: regular rate GI Palpation: soft and nontender Skin General skin exam: no rashes or lesions noted Neuro General: patient alert and patient oriented x3 Extrem General: normal to inspection Psych Mental Status: mental status grossly normal Course Vital Signs Vital signs: Vital Signs Temperature 35.8 C L 09/10/24 15:30 Pulse 94 H 09/10/24 15:30 Respiratory Rate 20 09/10/24 15:30 Blood Pressure 150/89 H 09/10/24 15:30 Pulse Oximetry 98 09/10/24 15:30 Temperature 35.8 C L 09/10/24 15:30 Temperature Source Tympanic 09/10/24 15:30 Pulse 94 H 09/10/24 15:30 Respiratory Rate 20 09/10/24 15:30 Blood Pressure 150/89 H 09/10/24 15:30 Blood Pressure Position Sitting 09/10/24 15:30 Pulse Oximetry 98 09/10/24 15:30 Oxygen Delivery Method Room Air 09/10/24 15:30 Oxygen Flow Rate 0 09/10/24 15:30 Medical Decision Making 73-year-old male comes in with 10 days of loose watery diarrhea stools. He denies any severe abdominal pains, he does note some intermittent abdominal cramping. He has not any vomiting, no fevers, no recent travel, no recent antibiotics. He is well-appearing on exam. He has a soft nontender abdomen. Given the lack of tenderness abdominal exam do not feel imaging of his abdomen is indicated. Will check C. difficile and fecal bacterial pathogens, will also check CBC and CMP to evaluate for possible electrolyte abnormality and evaluate for elevated wbc if he is positive for c diff Patient's blood work shows mild leukocytosis at 11, creatinine 1.4 which is just above her his baseline. He has not been able to provide a stool sample and does not want a wait to get 1. I will provide him with an outpatient lab requisition order. He will follow-up with his PCP and return precautions given Differential Diagnosis Differential Diagnosis: Diarrhea, electrolyte abnormality, C. difficile Quality:SDOH Health Related Social Needs: No Data to Display PFSH All Active Problems (Updated 09/10/24 @ 17:24 by Lalo Powell MD) Diarrhea (Acute) Scar of vermilion border of lower lip (Acute) Laceration without foreign body of lip, sequela (Acute) Diverticula of colon (Acute) Cholelithiasis with acute cholecystitis (Acute 06/03/14) H/O surgical procedure (Chronic) a. sigmoid colon resection LIZ (acute kidney injury) (Acute) Colitis (Acute) Hyperlipidemia (Acute) Non-insulin dependent type 2 diabetes mellitus (Acute) Discharge planning issues (Acute) DVT prophylaxis (Acute) Tobacco abuse (Chronic) Hypokalemia (Acute) Hyponatremia (Acute) Encounter for screening colonoscopy (Acute) Angioedema (Acute) Tongue swelling (Acute) Cerumen impaction (Acute) Deviated nasal septum (Acute) Medical History (Updated 09/10/24 @ 17:24 by Lalo Powell MD) Pain, joint, knee, right Nocturia Tachycardia Disorder of sacrum Allergic contact dermatitis Allergic rhinitis Drusen (degenerative) of macula, bilateral Polyneuropathy Smoker Erectile dysfunction Gout Tinea corporis Colonoscopy planned (~06/2019) Macular degeneration Tobacco dependence Depression pt. denies this Chronic anxiety pt. denies this Type 2 diabetes mellitus Non-insulin dependent type 2 diabetes mellitus Hyperlipidemia Diverticulosis Surgical History (Updated 10/25/23 @ 08:46 by Monae Cummins RN) H/O umbilical hernia repair 03/29/1993 H/O colonoscopy 12/09/2008 S/P partial colectomy 2011 @ [facility] [place] [facility] [place]P foot surgery, right Cholecystectomy (06/03/14) Lap. Family History (Updated 10/25/23 @ 08:48 by Monae Cummins RN) Maternal Grandfather Heart disease Father Esophageal cancer Sister No problems noted. Sister No problems noted. Brother No problems noted. Brother No problems noted. Brother Diverticulitis Uncle Diverticulosis Social History (Updated 10/25/23 @ 08:49 by Monae Cummins RN) Smoking/Tobacco Use Status: Current every day Tobacco Type: cigarettes Smoking packs per day: 0.25 Smoking cigarettes per day: 5.0 Years smoked: 46 Smoking pack-years: 11.50 Smoking risk assessment performed?: Yes Alcohol Intake: current Alcohol Intake frequency: a few times a week Alcohol type: hard liquor Drug use: Socially Substance use type: marijuana Do you feel safe at home: Yes Additional Social history: not in current relationship
[2024-09-10 16:44] LABS: Abs Immature Grans 0.06 10^3/uL (0.0-0.06); Absolute Eosinophil Count 0.39 10^3/uL (0.0-0.7); Absolute Lymphocyte Count 2.09 10^3/uL (1.2-3.4); Absolute Monocyte Count 0.86 10^3/uL (0.1-0.8); Basophils % 0.4 %; Eosinophils % 3.5 %; HCT 46.3 % (40.0-50.0); HGB 15.2 g/dL (13.5-17.5); Immature Grans % 0.5 %; Lymphocytes % 18.8 %; MCH 28.5 pg (27.0-33.0); MCHC 32.8 % (32.0-36.0); MCV 87 fL (80-95); MPV 9.5 fL (8.0-11.0); Monocytes % 7.7 %; Neutrophils % 69.1 %; Platelet Count 262 10^3/uL (130-400); RBC 5.33 10^6/uL (4.36-5.78); RDW 13.4 % (11.8-14.1); RDW-SD 42.7 fL; WBC 11.14 10^3/uL (4.4-10.8)
[2024-09-10 16:48] LABS: Absolute Basophil Count 0.04 10^3/uL (0.0-0.2)
[2024-09-10 17:02] LABS: ALT 56 U/L (16-63); AST 25 U/L (15-37); Albumin 3.3 g/dL (3.4-5.0); Alkaline Phosphatase 105 U/L (46-116); Anion Gap 7.2 mmol/L (3-11); BUN 17 mg/dL (7-18); Bilirubin, Total 0.52 mg/dL (0.2-1.0); CO2 28.8 mmol/L (21.0-32.0); CREATININE 1.4 mg/dL (0.70-1.30); Calcium 9.3 mg/dL (8.5-10.1); Chloride 106 mmol/L (98-107); Estimated GFR 53.07 (mL/min/1.73m2); Glucose 112 mg/dL (74-106); Magnesium 1.3 mg/dL (1.8-2.4); Potassium 3.9 mmol/L (3.5-5.1); Sodium 142 mmol/L (136-145); Total Protein 7.7 g/dL (6.4-8.2)
--- NOTE | 2024-09-10 17:50 | NUR.NOTE ---
Nursing Note: this RN gave D/C instructions on how to collect stool and where to bring it after sample has been collected
--- NOTE | 2024-09-16 14:16 | W.ED.FU ---
Date of service: 09/16/24 Time of Service: 14:16 Follow Up Plan: This patient was seen last week in the setting of diarrhea. He had a stool sample sent that resulted positive for Campylobacter. I attempted to call the patient on his cell phone at home phone but received no answers. He did not have a voicemail set up. I have reached out to Chioma Dunham from care management requesting assistance with follow-up.
== END 2024-09-10 17:44 | disposition home or self-care (01) ==
LOC: ER 17:43
PROVIDERS: Emergency Provider Emergency Medicine; PCP Nurse Practitioner Family
DX: R19.7 Diarrhea, unspecified (principal); E83.42 Hypomagnesemia; E11.9 Type 2 diabetes mellitus without complications; E78.5 Hyperlipidemia, unspecified; F17.210 Nicotine dependence, cigarettes, uncomplicated; Z79.82 Long term (current) use of aspirin
CPT/HCPCS: 80053; 99283; 83735; 85025

== ENCOUNTER 2024-09-11 19:39 | Outpatient (REF) | payer MEDICARE, SELFPAY ==
[2024-09-12 12:27] LABS: Campylobacter PCR Positive (Negative); Salmonella PCR Negative (Negative); Shiga Toxin PCR Negative (Negative); Shigella/Enteroinvasive Ecoli Negative (Negative)
== END 2024-09-11 19:40 | disposition home or self-care (01) ==
LOC: LBN 19:39
PROVIDERS: PCP Nurse Practitioner Family; Visit Provider Emergency Medicine
DX: R19.7 Diarrhea, unspecified (principal)
CPT/HCPCS: 87493; 87505

== ENCOUNTER 2024-12-07 02:44 | Outpatient (CLI) | payer MEDICARE, SELFPAY ==
--- NOTE | 2024-12-07 | DI.CTLCSR_ITS ---
Exam(s) CT CHEST LUNG CANCER SCREEN EXAM: CT CHEST LUNG CANCER SCREEN CLINICAL HISTORY: Nicotine dependence, F17.210 TECHNIQUE: Imaging Protocol: Axial computed tomography images with coronal and sagittal reformatted images were created and reviewed. Lung Computer Aided Detection (CAD) was utilized. COMPARISON: CT CT CHEST LUNG CANCER SCREEN from 12/06/2023 FINDINGS: Tracheobronchial tree: Patent where visualized. No bronchiectasis. Pulmonary parenchyma: No consolidation or dominant measurable mass. No architectural distortion. Lung Nodules: None. Mediastinum and Christiane: No dominant adenopathy or fluid collection. The esophagus is unremarkable. Thyroid gland: Unremarkable. Lymph nodes: Unremarkable. Pleura: No effusion or pneumothorax. Heart: The heart is not dilated. Coronary artery calcification is present. No pericardial effusion. Aorta: Thoracic aorta non-dilated.Atherosclerotic calcification is present. Upper abdomen: Unremarkable. Soft Tissues: Unremarkable. Bones: Within normal limits. IMPRESSION: No suspicious pulmonary nodules. Lung RADS Cat 1 - Negative: No nodules and definitely benign nodules Lung-RADS 1.0 CATEGORIES: Category 0 - Prior chest CT exam(s) being located for comparison. Category 1 - Annual screening in 12 months. No nodules or definitely benign nodules. Category 2 - Annual screening in 12 months. Benign appearance. Nodules with low likelihood of becomin g active cancer. Category 3 - 6-month follow-up. Probably benign. Short-term follow-up suggested. Nodules with low lik elihood of becoming active cancer. Category 4A - 3-month follow-up and CT/PET if >8 mm in size. Suspicious finding. Findings which requi re additional testing. Category 4B - Findings which require additional testing and tissue sampling. Suspicious finding. Category 4X - Category 3 or 4 nodules with additional features or imaging findings that increases the suspicion of malignancy. Modifier S- Potentially clinically significant finding. (Non lung cancer) RADIATION DOSE DELIVERED: 118.9mGy.cm Total DLP 118.9mGy.cmTotal DLP DATA REPOSITORY: All CT scans at this facility are submitted to the National Radiology Data Registry (NRDR) Dose Index Registry (DIR) with the [employer] (ACR). RADIATION OPTIMIZATION: All CT scans at this facility use at least one of these dose optimization te chniques: automated exposure control; mA and/or kV adjustment per patient size (includes targeted exa ms where dose is matched to clinical indication); or iterative reconstruction.
== END 2024-12-07 03:04 ==
LOC: DI 02:44
PROVIDERS: PCP Nurse Practitioner Family; Visit Provider Nurse Practitioner Family
DX: F17.210 Nicotine dependence, cigarettes, uncomplicated (principal); Z12.2 Encounter for screening for malignant neoplasm of respiratory organs
CPT/HCPCS: 71271

== ENCOUNTER → 2025-02-16 13:27 | Outpatient (BNVA) | payer MEDICARE, SELFPAY | PROVIDERS: PCP Nurse Practitioner Family; Referring Provider Nurse Practitioner Family; Visit Provider Podiatrist | DX: E11.42 Type 2 diabetes mellitus with diabetic polyneuropathy (principal); L60.2 Onychogryphosis; I87.2 Venous insufficiency (chronic) (peripheral); I83.93 Asymptomatic varicose veins of bilateral lower extremities; R09.89 Other specified symptoms and signs involving the circulatory and respiratory systems; Z87.448 Personal history of other diseases of urinary system | CPT/HCPCS: 99213; 11719 ==

== ENCOUNTER 2025-05-06 15:49 | Outpatient (REF) | payer MEDICARE, SELFPAY ==
[2025-05-06 19:46] LABS: COMMENT (LAB VIEW ONLY) 279.39 mg/dL
[2025-05-06 19:50] LABS: Microalb ug/mg Crea 262.0 ug/mg Cr
== END 2025-05-06 15:50 | disposition home or self-care (01) ==
LOC: NCHCN 15:49
PROVIDERS: PCP Nurse Practitioner Family
DX: E11.9 Type 2 diabetes mellitus without complications (principal)
CPT/HCPCS: 82043; 82570